=== PATIENT | male | born 1955 | race Caucasian/White ===

== ENCOUNTER 2018-10-14 14:59 | Emergency (ER) | payer OTHER ==
[2018-10-14 15:17] VITALS: BP 116/87
[2018-10-14] MEDS ORDERED: HYDROmorphone 1 MG/ML Syringe IVPUSH ONE ×2 (17:11→18:12)
[2018-10-14] MEDS ORDERED: Sodium Chloride 0.9% 10 ML Syringe FLUSH PRN (17:11)
--- NOTE | 2018-10-14 18:54 | EDM.PDOC ---
ED HPI GENERAL MEDICAL PROBLEM - General Chief Complaint: Back Pain or Injury Stated Complaint: HIP AND BACK PAIN Time Seen by Provider: 10/14/18 16:53 Source of Information: Reports: Patient History Limitations: Reports: No Limitations - History of Present Illness INITIAL COMMENTS - FREE TEXT/NARRATIVE: 63-year-old male presents for evaluation and treatment of back pain and hip pain. Patient reports he's had low back pain for several years, over the last few weeks it has become increasingly painful. States he is barely able to walk due to the pain. He is reporting pain primarily in the lumbar spine with radiation to the left hip. He denies any urinary incontinence or stool incontinence. He has cramps in the right leg. Patient also reports he's been falling recently. He fell several weeks ago he's been experiencing some right-sided rib pain since a fall 3 weeks ago. He also states that he fell about 10 days ago. No head trauma with these falls. Patient has a history of diabetes and COPD. He has chronic right leg numbness and tingling from his diabetes. Patient's primary care provider is Dr. Castillo. Patient is currently on oxycodone for pain. He states they took one of these just prior to arrival in ER. He is also tried muscle relaxers in the past but is not finding relief with these. Pat is currently seeing Dr. Maxwell for lung cancer. He is not currently on any chemotherapy or radiation now. Had chemotherapy and radiation about a year and a half ago. States it has been quite sometime since she's had a PET scan. Currently receiving immunotherapy. 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 Lower Back Pain Score (Numeric/FACES): 8 - Related Data Allergies Allergy/AdvReac Type Severity Reaction Status Date / Time No Known Allergies Allergy Verified 10/14/18 15:13 Home Meds: Home Meds Apixaban [Eliquis] 5 mg PO BID 04/08/18 [History] Aspirin 81 g PO DAILY 04/08/18 [History] Budesonide [Pulmicort] 1 dose INH BID 04/08/18 [History] Digoxin [Digox] 125 mcg PO DAILY 04/08/18 [History] Insulin Aspart [NovoLOG] 1 dose INJECT ASDIRECTED 04/08/18 [History] Insulin Degludec/Liraglutide [Xultophy 100 Unit-3.6MG/ml Pen] 18 units INJECT DAILY 04/08/18 [History] Insulin Needle 1 dose INJECT ASDIRECTED 04/08/18 [History] Ipratropium [Atrovent] 1 dose INH Q8HR 04/08/18 [History] Lancets 1 dose INJECT ASDIRECTED 04/08/18 [History] Levalbuterol HCl 45 mcg INH ASDIRECTED 04/08/18 [History] Metoprolol Tartrate 50 mg PO BID 04/08/18 [History] Nitroglycerin [Nitrostat] 0.4 mg SL ASDIRECTED PRN 04/08/18 [History] Potassium Chloride 20 meq PO BID 04/08/18 [History] Sertraline [Zoloft] 50 mg PO DAILY 04/08/18 [History] atorvaSTATin [Lipitor] 40 mg PO BEDTIME 04/08/18 [History] prednisoLONE [Millipred] 10 mg PO ASDIRECTED 04/08/18 [History] Insulin Degludec [Tresiba] 18 units SQ DAILY 09/20/18 [History] LORazepam 1 tab PO BID PRN 09/20/18 [History] Magnesium Oxide 1 tab PO DAILY 09/20/18 [History] Sofosbuvir/Velpatasvir [Epclusa 400 mg-100 mg Tablet] 1 tab PO DAILY 09/20/18 [ History] Pantoprazole Sodium [Protonix] 40 mg PO DAILY 10 Days #10 tablet. 09/22/18 [Rx ] dexAMETHasone [Dexamethasone] 4 mg PO QID 10 Days #40 tablet 09/22/18 [Rx] HYDROmorphone [Dilaudid] 2 mg PO Q4H PRN #20 tab 10/14/18 [Rx] Past Medical History HEENT History: Reports: Impaired Vision Other HEENT History: reading glasses Cardiovascular History: Reports: CAD, High Cholesterol, Hypertension Respiratory History: Reports: COPD, Other (See Below) Other Respiratory History: lung cancer with radiation and chemo Gastrointestinal History: Reports: None Genitourinary History: Reports: None Musculoskeletal History: Reports: None Neurological History: Reports: None Psychiatric History: Reports: Anxiety Endocrine/Metabolic History: Reports: Diabetes, Type II Hematologic History: Reports: None Immunologic History: Reports: None Oncologic (Cancer) History: Reports: Lung, Other (See Below) Other Oncologic History: l side lung cancer, "non-small cell" per pt, Dr Fan is oncologist Dermatologic History: Reports: None - Infectious Disease History Infectious Disease History: Reports: Chicken Pox, Hepatitis C - Past Surgical History Cardiovascular Surgical History: Reports: Coronary Artery Stent Respiratory Surgical History: Reports: Other (See Below) GI Surgical History: Reports: Cholecystectomy Social & Family History - Family History Family Medical History: Noncontributory - Tobacco Use Smoking Status *Q: Former Smoker Used Tobacco, but Quit: Yes Month/Year Tobacco Last Used: 2017 - Caffeine Use Caffeine Use: Reports: Coffee, Soda, Tea - Recreational Drug Use Recreational Drug Use: No - Living Situation & Occupation Living situation: Reports: Occupation: Disabled ED ROS GENERAL - Review of Systems Review Of Systems: See Below Cardiovascular: Reports: Chest Pain (reports pain to the right anterior lateral lower ribs) GI/Abdominal: Denies: Stool Incontinence : Denies: Incontinence Musculoskeletal: Reports: Back Pain. Denies: Leg Pain Neurological: Denies: Numbness, Tingling ED EXAM,LOWER BACK PAIN/INJURY - Physical Exam Exam: See Below Exam Limited By: No Limitations General Appearance: Alert, WD/WN, No Apparent Distress Respiratory/Chest: No Respiratory Distress, Lungs Clear, Normal Breath Sounds Cardiovascular: Normal Peripheral Pulses, Regular Rate, Rhythm, No Murmur Back Exam: Normal Inspection, Paraspinal Tenderness (lumbar spine ). No: CVA Tenderness (L), CVA Tenderness (R), Vertebral Tenderness Extremities: Normal Inspection, Normal Range of Motion, Normal Capillary Refill Neurological: Alert, Normal Mood/Affect, Normal Dorsiflexion, Normal Plantar Flexion Psychiatric: Normal Affect, Normal Mood Skin Exam: Warm, Dry, Normal Color Course - Vital Signs Last Recorded V/S: Last Vital Signs Temp 97.9 F 10/14/18 15:17 Pulse 82 10/14/18 15:17 Resp 16 10/14/18 15:17 BP 116/87 10/14/18 15:17 Pulse Ox 93 L 10/14/18 15:17 - Orders/Labs/Meds Meds: Medications Discontinued Medications Generic Name Dose Route Start Last Admin Trade Name Freq PRN Reason Stop Dose Admin Hydromorphone HCl 1 mg 10/14/18 17:11 10/14/18 17:30 Dilaudid IVPUSH 10/14/18 17:12 1 mg ONETIME ONE Administration Hydromorphone HCl 1 mg 10/14/18 18:12 10/14/18 18:27 Dilaudid IVPUSH 10/14/18 18:13 1 mg ONETIME ONE Administration Hydromorphone HCl 0.5 mg 10/14/18 20:03 10/14/18 20:08 Dilaudid IVPUSH 10/14/18 20:04 0.5 mg ONETIME ONE Administration Sodium Chloride 10 ml 10/14/18 17:11 10/14/18 17:30 Saline Flush FLUSH 10 ml ASDIRECTED PRN Administration Keep Vein Open - Radiology Interpretation Free Text/Narrative:: CT of the pelvis impression per vrad: no acute findings. CT of the lumbar spine impression per vard: age-indeterminate endplate herniation L4 vertebral body. Age- indeterminante 1 cm avulsion fragment posisbly off of osteophyte, inferior endplate L3. 3.8 cm infrarenal abdominal aortic aneurysm - Re-Assessments/Exams Free Text/Narrative Re-Assessment/Exam: 10/14/18 20:09 After several doses of medications we have gotten his pain under control. CT of the pelvis and lumbar spine obtained to rule out metastasis and Compression fractures. Reviewed these results with the patient. I'll put him on some oral tabs of Dilaudid as he is on oxycodone and this is not controlling his pain. I will have him follow-up with his primary care provider. Discharge instructions as documented. 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 Do not drive or operate machinery within 10 hours of taking narcotic pain medication. Take the oral Dilaudid 2mg PO every 4-6 hours as needed for pain. Do not take the oxycodone you have at home with this. Dilaudid is habit forming, take as few of these as needed to control your pain. Do not drive or operate machinery within 10 hours of taking Dilaudid Continue on your muscle relaxer as prescribed. Follow-up with your primary care provider this week for further management of your pain. Recommend using ice or heat for additional pain relief. Please return to the ER for symptoms change or worsen.
[2018-10-14] MEDS ORDERED: HYDROmorphone 0.5 MG/0.5 ML Syringe IVPUSH ONE (20:03)
--- NOTE | 2018-10-15 09:32 | CT ---
CT lumbar spine Technique: Multiple axial sections were obtained from the top of T12 inferiorly through the sacrum. Reconstructed coronal and sagittal images were reviewed. Comparison: No prior lumbar spine imaging is available. Osteopenia is seen. Distal aorta shows mild aneurysmal dilatation with AP dimension of 3.5 cm. T11-T12: Posterior disc space narrowing is seen. Posterior disc is preserved. Slight endplate concavity is noted at T12 with no definite acute fracture lines. No central canal stenosis or neural foraminal stenosis is seen. T12-L1: Mild anterior wedging of T12 is seen. Endplate concavity is noted inferiorly within T12. No discrete acute fracture line is seen. Degenerative change is noted at the rib articulation and within both apophyseal joints. No central canal stenosis is seen. Neural foramina are patent. L1-L2: Mild anterior wedging of L1 is seen. No acute fracture line is definitely appreciated. Posterior disc maintains a concave margin. No central canal stenosis is seen. Neural foramina are patent. Mild degenerative apophyseal change is seen. L2-L3: Slight circumferential disc bulge is seen. Posterior disc maintains a planar margin. No central canal stenosis is seen. Mild degenerative apophyseal change is noted. Nerve roots appear to exit without definite compromise. No discrete fracture is appreciated. L3-L4: Vacuum disc phenomena is seen. Endplate concavities noted of L3. Small amount of air is seen within the anterior and inferior endplate of L3 and some of this compression deformity may be acute. Circumferential disc bulge is seen. No central canal stenosis is noted. Disc bulge causes bilateral neural foraminal stenosis which is worse on the left side. Mild degenerative apophyseal change is seen. L4-L5: Endplate concavities are noted of L4. Equivocal fracture line is noted within the mid body of L4 and some of this compression deformity is likely acute. Mild circumferential disc bulge is seen. Mild degenerative apophyseal change is noted. No central canal stenosis is seen. Neural foramina are patent where the nerve roots exit. L5-S1: Posterior disc is preserved. No central canal stenosis or neural foraminal stenosis is seen. Degenerative apophyseal change is seen. No fracture is appreciated. Impression: 1. Compression deformities of L3 and L4 with findings suggesting some of the compression deformities to be acute. MRI would confirm bone marrow edema (indicating fairly acute age) if clinically needed. 2. Degenerative change as noted above with other compression deformities believed to be old. Diagnostic code #3 I agree with preliminary report from [facility], finalized on 10/14/18, 8:27 PM Central Time
--- NOTE | 2018-10-15 09:32 | CT ---
CT pelvis Technique: Multiple axial sections through the pelvis were obtained. Comparison: No previous bony pelvis exam. Compression deformities are seen within the spine which were discussed on CT spine study. Joint space narrowing is noted within both hips. Sacroiliac joints show mild degenerative sclerosis. Bony structures are otherwise osteopenic. No fracture or other abnormality is appreciated. Impression: 1. Osteopenia and degenerative change. 2. Compression deformities are partially seen which were described on CT lumbar spine study. 3. Nothing acute is appreciated. Diagnostic code #2 I agree with preliminary report from [facility], finalized on 10/14/18, 8:30 PM Central Time
--- NOTE | 2018-10-15 09:35 | CR ---
Chest and ribs: Frontal view of the chest was obtained as well as oblique views of both ribs. Comparison: Prior chest x-ray of 02/17/18. Parenchymal density is noted within the left mid and lower lung presumably chronic. Pleural thickening is also noted within the left base presumably chronic. No definite acute-appearing parenchymal changes seen. Incidental azygos lobe is noted. Left-sided infusion port is seen. Degenerative spurring and scoliosis is noted within the spine. No discrete fracture or other rib abnormality is appreciated. Impression: 1. Increased density within the left chest as well as adjacent pleural thickening most likely residual from previously treated lung carcinoma. 2. Nothing acute is definitely appreciated. Nondisplaced rib fracture could be missed. Diagnostic code #3
== END 2018-10-14 20:38 | disposition home or self-care (01) ==
LOC: JD.ED 14:59
DX: M54.5 Low back pain (principal); E78.00 Pure hypercholesterolemia, unspecified; I10 Essential (primary) hypertension; I25.10 Atherosclerotic heart disease of native coronary artery without angina pectoris; J44.9 Chronic obstructive pulmonary disease, unspecified; F41.9 Anxiety disorder, unspecified; E11.9 Type 2 diabetes mellitus without complications; Z87.891 Personal history of nicotine dependence; Z79.899 Other long term (current) drug therapy; Z79.82 Long term (current) use of aspirin; Z79.01 Long term (current) use of anticoagulants; Z79.4 Long term (current) use of insulin
CPT/HCPCS: 71111; 72131; 72192; 96374; 96376; 99284; J1170

== ENCOUNTER 2018-11-06 11:45 | Inpatient (IN) | payer OTHER ==
[2018-11-06] MEDS ORDERED: Albuterol/Ipratropium 3.0-0.5 MG/3 ML Neb Soln ONE (11:59)
[2018-11-06] MEDS ORDERED: Albuterol/Ipratropium 3.0-0.5 MG/3 ML Neb Soln NEB ONE (11:59)
[2018-11-06] MEDS ORDERED: Dexamethasone 4 MG/ML SDV IVPUSH ONE (12:15)
[2018-11-06] MEDS ORDERED: Iopamidol 755 Mg/ML 100 ML Bottle IVPUSH ONE (12:26)
[2018-11-06] MEDS ORDERED: Sodium Chloride 0.9% 10 ML Syringe FLUSH ONE (12:26)
--- NOTE | 2018-11-06 12:26 | EDM.PDOC ---
ED HPI GENERAL MEDICAL PROBLEM - General Chief Complaint: Respiratory Problem Stated Complaint: [facility] Time Seen by Provider: 11/06/18 11:56 Source of Information: Reports: Patient, EMS, RN Notes Reviewed - History of Present Illness INITIAL COMMENTS - FREE TEXT/NARRATIVE: 63-year-old gentleman has been brought here by EMS for severe shortness of breath, hypoxia. He does have history of lung cancer diagnosed about a year ago. Reported to of had radiation therapy last summer and early fall and also did have chemotherapy somewhere in that time period. According to his brother he now is getting periodic "infusion therapy which I believe is some type of immunotherapy. He does use oxygen at home. He is chronically short of breath but this morning became much more severely short of breath than typical. When EMS arrived at his home for his complaint of shortness of breath, difficulty breathing and severe back discomfort they state he was "mottled from the waist down, severely short of breath with O2 sats at around 82% with his oxygen concentrator cranked all the way up and also using the supplemental oxygen take with mask. They did try to give an albuterol neb. and also got him started on some BiPAP en route to the ED. They state his sats di come up to around 90 and "he is doing much better from their arrival at the resident's home [place] time ago". Looking at his med list he has been on [facility] in the past apparently for chronic atrial fibrillation but his brother states that was stopped sometime ago due to morning to start a new medication for what sounds like chronic hepatitis C. 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 He is on daily dexamethasone. His brother does not believe he took that or most of his other normal meds this morning. According to his brother he has had occasional rectal cough of some yellow crud but has not been coughing excessively. No known fever at home. Middle Back Pain Score (Numeric/FACES): 8 - Related Data Allergies Allergy/AdvReac Type Severity Reaction Status Date / Time No Known Allergies Allergy Verified 11/06/18 11:56 Home Meds: Home Meds Aspirin 81 g PO DAILY 04/08/18 [History] Budesonide [Pulmicort] 1 dose INH BID 04/08/18 [History] Digoxin [Digox] 125 mcg PO DAILY 04/08/18 [History] Insulin Aspart [NovoLOG] 1 dose INJECT ASDIRECTED 04/08/18 [History] Ipratropium [Atrovent] 1 dose INH Q8HR 04/08/18 [History] Metoprolol Tartrate 50 mg PO BID 04/08/18 [History] Sertraline [Zoloft] 50 mg PO DAILY 04/08/18 [History] Insulin Degludec [Tresiba] 23 units SQ DAILY 09/20/18 [History] LORazepam 1 tab PO BID PRN 09/20/18 [History] Magnesium Oxide 1 tab PO DAILY 09/20/18 [History] Sofosbuvir/Velpatasvir [Epclusa 400 mg-100 mg Tablet] 1 tab PO DAILY 09/20/18 [ History] Pantoprazole Sodium [Protonix] 40 mg PO DAILY 10 Days #10 tablet. 09/22/18 [Rx ] Acetaminophen 650 mg PO Q4H PRN 11/06/18 [History] Albuterol/Ipratropium [DuoNeb 3.0-0.5 MG/3 ML] 3 ml NEB QID 11/06/18 [History] Digoxin [Digox] 250 mcg PO MOFR 11/06/18 [History] dexAMETHasone [Dexamethasone] 4 mg PO BID 11/06/18 [History] oxyCODONE ER [OxyCONTIN] 10 mg PO Q4H PRN 11/06/18 [History] traZODone HCl [Trazodone HCl] 100 mg PO BEDTIME 11/06/18 [History] Past Medical History HEENT History: Reports: Impaired Vision Other HEENT History: reading glasses Cardiovascular History: Reports: CAD, High Cholesterol, Hypertension Respiratory History: Reports: COPD, Other (See Below) Other Respiratory History: lung cancer with radiation and chemo Gastrointestinal History: Reports: None Genitourinary History: Reports: None Musculoskeletal History: Reports: None Neurological History: Reports: None Psychiatric History: Reports: Anxiety Endocrine/Metabolic History: Reports: Diabetes, Type II Hematologic History: Reports: None Immunologic History: Reports: None Oncologic (Cancer) History: Reports: Lung, Other (See Below) Other Oncologic History: l side lung cancer, "non-small cell" per pt, Dr Fan is oncologist Dermatologic History: Reports: None - Infectious Disease History Infectious Disease History: Reports: Chicken Pox, Hepatitis C - Past Surgical History Cardiovascular Surgical History: Reports: Coronary Artery Stent Respiratory Surgical History: Reports: Other (See Below) GI Surgical History: Reports: Cholecystectomy Social & Family History - Family History Family Medical History: Noncontributory - Caffeine Use Caffeine Use: Reports: Coffee, Soda, Tea - Living Situation & Occupation Living situation: Reports: Occupation: Disabled ED ROS GENERAL - Review of Systems Review Of Systems: Unable To Obtain (Patient on BiPAP on arrival to ED, short of breath, as in questions but very difficult to understand. The history I am obtaining is and was from EMS and his brother.) Respiratory: Reports: Shortness of Breath GI/Abdominal: Denies: Abdominal Pain, Vomiting Skin: Reports: Other (Severe duskiness and mottling of lower body) ED EXAM, GENERAL - Physical Exam Exam: See Below General Appearance: Anxious, Moderate Distress Eye Exam: Bilateral Eye: PERRL Throat/Mouth: Other (Wearing CPAP mask on arrival to ED, not able to examine) Head: No: Facial Swelling Neck: Supple, Other ([place] JVD) Respiratory/Chest: Respiratory Distress (Moderate). No: Rales, Rhonchi, Wheezing Cardiovascular: Tachycardia GI/Abdominal: Soft, Non-Tender Back Exam: No: CVA Tenderness (L), CVA Tenderness (R) Extremities: Mottled (Very mild mottling of lower extremities on arrival to ED) . No: Leg Pain, Increased Warmth Neurological: No Motor/Sensory Deficits, Other (Patient is awake, he does verbalize when asked questions but very difficult to understand with his somewhat labored breathing and wearing the BiPAP mask) Skin Exam: Warm, Dry (On arrival to ED) EKG INTERPRETATION EKG Date: 11/06/18 Rhythm: A-Fib P-Wave: Absent QRS: Other (Q waves in inferior leads) ST-T: Depressed (V2V6) Course - Vital Signs Last Recorded V/S: Last Vital Signs Temp 97.2 F 11/06/18 11:53 Pulse 126 H 11/06/18 11:53 Resp 27 H 11/06/18 11:53 BP 122/83 11/06/18 11:53 Pulse Ox 92 L 11/06/18 12:06 - Orders/Labs/Meds Orders: Active Orders 24 hr Category Date Time Status BIPAP Adult [RT BiPAP/CPAP] [RC] ASDIRECTED Care 11/06/18 12:07 Active EKG 12 Lead [EKG Documentation Completion] [RC] STAT Care 11/06/18 11:59 Active Oxygen Therapy [RC] ASDIRECTED Care 11/06/18 11:57 Active POC Glucose [Blood Glucose Check, Bedside] [RC] ONETIME Care 11/06/18 12:09 Active RT Aerosol Therapy [RC] ASDIRECTED Care 11/06/18 12:00 Active CULTURE BLOOD [] Stat Lab 11/06/18 12:13 Received Sodium Chloride 0.9% [Normal Saline] 1,000 ml Med 11/06/18 15:00 Active IV ASDIRECTED Sodium Chloride 0.9% [Normal Saline] 100 ml Med 11/06/18 12:30 Active IV ASDIRECTED Medication Orders Sodium Chloride (Normal Saline) 100 mls @ 60 mls/hr IV ASDIRECTED SANNA Last Admin: 11/06/18 12:42 Dose: 60 mls/hr Sodium Chloride (Normal Saline) 1,000 mls @ 125 mls/hr IV ASDIRECTED SANNA Last Admin: 11/06/18 14:58 Dose: 125 mls/hr Labs: Laboratory Tests 11/06/18 11/06/18 11/06/18 Range/Units 11:50 11:50 11:50 WBC 9.37 H (4.23-9.07) K/mm3 RBC 5.33 (4.63-6.08) M/mm3 Hgb 14.6 D (13.7-17.5) gm/L Hct 44.1 (40.1-51.0) % MCV 82.7 D (79.0-92.2) fl MCH 27.4 (25.7-32.2) pg MCHC 33.1 (32.2-35.5) g/dl RDW Std Deviation 49.9 H (35.1-43.9) fL Plt Count 201 D (163-337) K/mm3 MPV 8.8 L (9.4-12.3) fl Neut % (Auto) 71.7 H (34.0-67.9) % Lymph % (Auto) 16.9 L (21.8-53.1) % Schley % (Auto) 3.2 L (5.3-12.2) % Eos % (Auto) 0.1 L (0.8-7.0) Baso % (Auto) 0.2 (0.1-1.2) % Neut # (Auto) 6.72 H (1.78-5.38) K/mm3 Lymph # (Auto) 1.58 (1.32-3.57) K/mm3 Schley # (Auto) 0.30 (0.30-0.82) K/mm3 Eos # (Auto) 0.01 L (0.04-0.54) K/mm3 Baso # (Auto) 0.02 (0.01-0.08) K/mm3 Manual Slide Review Abnormal smear D-Dimer, Quantitative 3.86 H (0.19-0.50) mg/L Puncture Site ABG pH (7.35-7.45) ABG pCO2 (35.0-45.0) mmHg ABG pO2 (80.0-100.0) mmHg ABG HCO3 (22.0-26.0) meq/L ABG O2 Saturation (96.0-97.0) % ABG Base Excess (-2-2.0) Zachary Test A-a Gradient mmHg O2 Delivery Device FiO2 (21.00-100.00) % Sodium 136 (136-145) mEq/L Potassium 4.6 (3.5-5.1) mEq/L Chloride 94 L (98-107) mEq/L Carbon Dioxide 30 (21-32) mEq/L Anion Gap 16.6 H (5-15) BUN 25 H (7-18) mg/dL Creatinine 1.3 (0.7-1.3) mg/dL Est Cr Clr Drug Dosing TNP Estimated GFR (MDRD) 56 (>60) mL/min BUN/Creatinine Ratio 19.2 H (14-18) Glucose 223 H (80-115) mg/dL Lactic Acid (0.4-2.0) mmol/L Calcium 9.1 (8.5-10.1) mg/dL Magnesium (1.8-2.4) mg/dl Total Bilirubin 0.6 (0.2-1.0) mg/dL AST 19 (15-37) U/L ALT 34 (16-63) U/L Alkaline Phosphatase 117 H (46-116) U/L Troponin I < 0.017 (0.00-0.056) ng/mL C-Reactive Protein 7.8 H* (<1.0) mg/dL Total Protein 7.0 (6.4-8.2) g/dl Albumin 2.4 L (3.4-5.0) g/dl Globulin 4.6 gm/dL Albumin/Globulin Ratio 0.5 L (1-2) Digoxin (0.9-2.0) ng/mL 11/06/18 11/06/18 11/06/18 Range/Units 11:50 11:50 12:13 WBC (4.23-9.07) K/mm3 RBC (4.63-6.08) M/mm3 Hgb (13.7-17.5) gm/L Hct (40.1-51.0) % MCV (79.0-92.2) fl MCH (25.7-32.2) pg MCHC (32.2-35.5) g/dl RDW Std Deviation (35.1-43.9) fL Plt Count (163-337) K/mm3 MPV (9.4-12.3) fl Neut % (Auto) (34.0-67.9) % Lymph % (Auto) (21.8-53.1) % Schley % (Auto) (5.3-12.2) % Eos % (Auto) (0.8-7.0) Baso % (Auto) (0.1-1.2) % Neut # (Auto) (1.78-5.38) K/mm3 Lymph # (Auto) (1.32-3.57) K/mm3 Schley # (Auto) (0.30-0.82) K/mm3 Eos # (Auto) (0.04-0.54) K/mm3 Baso # (Auto) (0.01-0.08) K/mm3 Manual Slide Review D-Dimer, Quantitative (0.19-0.50) mg/L Puncture Site ABG pH (7.35-7.45) ABG pCO2 (35.0-45.0) mmHg ABG pO2 (80.0-100.0) mmHg ABG HCO3 (22.0-26.0) meq/L ABG O2 Saturation (96.0-97.0) % ABG Base Excess (-2-2.0) Zachary Test A-a Gradient mmHg O2 Delivery Device FiO2 (21.00-100.00) % Sodium (136-145) mEq/L Potassium (3.5-5.1) mEq/L Chloride (98-107) mEq/L Carbon Dioxide (21-32) mEq/L Anion Gap (5-15) BUN (7-18) mg/dL Creatinine (0.7-1.3) mg/dL Est Cr Clr Drug Dosing Estimated GFR (MDRD) (>60) mL/min BUN/Creatinine Ratio (14-18) Glucose (80-115) mg/dL Lactic Acid 3.6 H (0.4-2.0) mmol/L Calcium (8.5-10.1) mg/dL Magnesium 1.6 L (1.8-2.4) mg/dl Total Bilirubin (0.2-1.0) mg/dL AST (15-37) U/L ALT (16-63) U/L Alkaline Phosphatase (46-116) U/L Troponin I (0.00-0.056) ng/mL C-Reactive Protein (<1.0) mg/dL Total Protein (6.4-8.2) g/dl Albumin (3.4-5.0) g/dl Globulin gm/dL Albumin/Globulin Ratio (1-2) Digoxin 0.9 (0.9-2.0) ng/mL 11/06/18 11/06/18 Range/Units 12:21 15:04 WBC (4.23-9.07) K/mm3 RBC (4.63-6.08) M/mm3 Hgb (13.7-17.5) gm/L Hct (40.1-51.0) % MCV (79.0-92.2) fl MCH (25.7-32.2) pg MCHC (32.2-35.5) g/dl RDW Std Deviation (35.1-43.9) fL Plt Count (163-337) K/mm3 MPV (9.4-12.3) fl Neut % (Auto) (34.0-67.9) % Lymph % (Auto) (21.8-53.1) % Schley % (Auto) (5.3-12.2) % Eos % (Auto) (0.8-7.0) Baso % (Auto) (0.1-1.2) % Neut # (Auto) (1.78-5.38) K/mm3 Lymph # (Auto) (1.32-3.57) K/mm3 Schley # (Auto) (0.30-0.82) K/mm3 Eos # (Auto) (0.04-0.54) K/mm3 Baso # (Auto) (0.01-0.08) K/mm3 Manual Slide Review D-Dimer, Quantitative (0.19-0.50) mg/L Puncture Site Lt radial Lt radial ABG pH 7.50 H 7.48 H (7.35-7.45) ABG pCO2 36.9 39.2 (35.0-45.0) mmHg ABG pO2 70.0 L 157.0 H* (80.0-100.0) mmHg ABG HCO3 28.2 H 28.6 H (22.0-26.0) meq/L ABG O2 Saturation 94.2 L 97.8 H (96.0-97.0) % ABG Base Excess 5.2 H 5.1 H (-2-2.0) Zachary Test Positive A-a Gradient 332 242 mmHg O2 Delivery Device Bipap12/6 Bipap 12/6 FiO2 70.00 70.00 (21.00-100.00) % Sodium (136-145) mEq/L Potassium (3.5-5.1) mEq/L Chloride (98-107) mEq/L Carbon Dioxide (21-32) mEq/L Anion Gap (5-15) BUN (7-18) mg/dL Creatinine (0.7-1.3) mg/dL Est Cr Clr Drug Dosing Estimated GFR (MDRD) (>60) mL/min BUN/Creatinine Ratio (14-18) Glucose (80-115) mg/dL Lactic Acid (0.4-2.0) mmol/L Calcium (8.5-10.1) mg/dL Magnesium (1.8-2.4) mg/dl Total Bilirubin (0.2-1.0) mg/dL AST (15-37) U/L ALT (16-63) U/L Alkaline Phosphatase (46-116) U/L Troponin I (0.00-0.056) ng/mL C-Reactive Protein (<1.0) mg/dL Total Protein (6.4-8.2) g/dl Albumin (3.4-5.0) g/dl Globulin gm/dL Albumin/Globulin Ratio (1-2) Digoxin (0.9-2.0) ng/mL Meds: Medications Generic Name Dose Route Start Last Admin Trade Name Rufina PRN Reason Stop Dose Admin Sodium Chloride 100 mls @ 60 mls/hr 11/06/18 12:30 11/06/18 12:42 Normal Saline IV 60 mls/hr ASDIRECTED SANNA Administration Sodium Chloride 1,000 mls @ 125 mls/hr 11/06/18 15:00 11/06/18 14:58 Normal Saline IV 125 mls/hr ASDIRECTED SANNA Administration Discontinued Medications Generic Name Dose Route Start Last Admin Trade Name Rufina PRN Reason Stop Dose Admin Albuterol/Ipratropium 3 ml 11/06/18 11:59 11/06/18 12:05 Duoneb 3.0-0.5 Mg/3 Ml NEB 11/06/18 12:00 3 ml ONETIME ONE Administration Albuterol/Ipratropium Confirm 11/06/18 11:59 11/06/18 12:05 Duoneb 3.0-0.5 Mg/3 Ml Administered 11/06/18 12:00 Not Given Dose 3 ml .ROUTE .STK-MED ONE Dexamethasone 4 mg 11/06/18 12:15 11/06/18 12:19 Dexamethasone IVPUSH 11/06/18 12:16 4 mg ONETIME ONE Administration Hydromorphone HCl 0.5 mg 11/06/18 15:34 Dilaudid IVPUSH 11/06/18 15:35 ONETIME ONE Sodium Chloride 500 mls @ 999 mls/hr 11/06/18 13:22 11/06/18 13:29 Normal Saline IV 11/06/18 13:52 999 mls/hr .BOLUS ONE Administration Ceftriaxone Sodium 2 gm/ 100 mls @ 200 mls/hr 11/06/18 14:19 11/06/18 14:25 Sodium Chloride IV 11/06/18 14:48 200 mls/hr NOW STA Administration Iopamidol 100 ml 11/06/18 12:26 11/06/18 12:41 Isovue-370 (76%) IVPUSH 11/06/18 12:27 100 ml ONETIME ONE Administration Sodium Chloride 10 ml 11/06/18 12:26 11/06/18 12:41 Saline Flush FLUSH 11/06/18 12:27 10 ml ONETIME ONE Administration - Re-Assessments/Exams Free Text/Narrative Re-Assessment/Exam: 11/06/18 1 12:40. On arrival to ED he was very to Make only hypoxic with sats running about 88-90% on CPAP started by EMS in route to ED. Heart rate was in the 120s. He was noted to be afebrile. We did switch him over to BiPAP at a setting of 12/6. Gave him a dual neb through the tubing. Give dexamethasone 4 mg IV. Weighted about 10 minutes and then did check ABGs. 11/06/18 13:00. ABGs show a PO2 of 70, pH 7.5 CO2 36.9 at an FiO2 of 70%, white blood count came back at 9370, hemoglobin 14.6 BUN 25 creatinine 1.3C reactive protein 7.8. D-dimer came back at 3.86. CT pulmonary angiogram has been ordered. He has starting to show improvement with O2 sats now up into the 98-100 % range. He does come down to 110. 11/06/18 14:25. Have talked to Dr Fan, his oncologist. He states that what looks like new onset pneumonia should be able to be safely treated here. I have talked to Dr Tucker, our Hospitalist, he wants to have us recheck a blood gas now that it has been a couple of hrs, if improved as expected than he will be admitted here. 11/06/18 15:30. ABG's markedly improved, Dr Mathew does accept patient for admission. Departure - Departure Time of Disposition: 14:20 Disposition: Admitted As Inpatient 67 Condition: Serious Clinical Impression: Hypoxia, Atrial fibrillation with RVR Pneumonia Qualifiers: Pneumonia type: due to unspecified organism Laterality: left Lung location: lower lobe of lung Qualified Code(s): J18.1 - Lobar pneumonia, unspecified organism - Discharge Information Referrals: Denny Castillo MD [Primary Care Provider] - Forms: ED Department Discharge ED Communication - Discussed Case With (1) Discussed Case With (1): Admitting Provider (Dr Tucker, decision to admit at about 15:20.) - My Orders Last 24 Hours: My Active Orders 11/06/18 11:57 Oxygen Therapy [RC] ASDIRECTED 11/06/18 11:59 EKG 12 Lead [EKG Documentation Completion] [RC] STAT 11/06/18 12:00 RT Aerosol Therapy [RC] ASDIRECTED 11/06/18 12:07 BIPAP Adult [RT BiPAP/CPAP] [RC] ASDIRECTED 11/06/18 12:09 POC Glucose [Blood Glucose Check, Bedside] [RC] ONETIME 11/06/18 12:13 CULTURE BLOOD [BC] Stat 11/06/18 12:30 Sodium Chloride 0.9% [Normal Saline] 100 ml IV ASDIRECTED 11/06/18 15:00 Sodium Chloride 0.9% [Normal Saline] 1,000 ml IV ASDIRECTED - Assessment/Plan Last 24 Hours: My Active Orders 11/06/18 11:57 Oxygen Therapy [RC] ASDIRECTED 11/06/18 11:59 EKG 12 Lead [EKG Documentation Completion] [RC] STAT 11/06/18 12:00 RT Aerosol Therapy [RC] ASDIRECTED 11/06/18 12:07 BIPAP Adult [RT BiPAP/CPAP] [RC] ASDIRECTED 11/06/18 12:09 POC Glucose [Blood Glucose Check, Bedside] [RC] ONETIME 11/06/18 12:13 CULTURE BLOOD [BC] Stat 11/06/18 12:30 Sodium Chloride 0.9% [Normal Saline] 100 ml IV ASDIRECTED 11/06/18 15:00 Sodium Chloride 0.9% [Normal Saline] 1,000 ml IV ASDIRECTED
[2018-11-06] MEDS ORDERED: Sodium Chloride 0.9% 100 ML IV SCH (12:30)
[2018-11-06] MEDS ORDERED: Sodium Chloride 0.9% 500 ML IV ONE (13:22)
--- NOTE | 2018-11-06 13:50 | CT ---
CT chest Technique: Multiple axial sections through the chest were obtained. Intravenous contrast was utilized. Study has been performed as a pulmonary angiogram protocol. Comparison: Chest x-ray performed earlier on the same day (11:10 AM) and chest x -ray 10/14/18. Findings: Pulmonary arteries are well-opacified. No filling defects are seen to indicate pulmonary embolism. Parenchymal density is seen within the periphery of the right upper lung and right lower lung which is an interval change from older chest x-ray. Air- filled cavity containing fluid is seen within the posterior left lung base which measures about 9.2 cm. Slight interstitial change is noted within the left base. Atherosclerotic change is seen within the thoracic aorta without aneurysm. Small mediastinal lymph nodes are seen believed to be within normal limits. Left subclavian line is seen. Degenerative change is scattered within the spine with mild scoliosis. No acute osseous abnormality is seen. Coronary artery calcification is present. Incidental azygos lobe is present. Impression: 1. No findings of pulmonary embolism. 2. Parenchymal density within the periphery of the right upper and right lower lung as an interval change from previous chest x-ray of 10/14/18. Findings could represent lymphangitic metastatic disease as well as pneumonia. 3. Fluid-filled and air-filled cavity within the posterior left lung base with measurements as noted above. Fluid may relate to necrotic tumor if patient has no chronic symptoms of lung abscess. 4. Slight parenchymal density within the left lung most likely due to scarring from prior lung cancer treatment. MTDD
--- NOTE | 2018-11-06 13:51 | CR ---
Pelvis: AP view of the pelvis was obtained. Joint spaces within both hips are maintained. Sacroiliac joints are unremarkable. Several cysts are noted within the superior left acetabulum most likely degenerative in etiology. No discrete fracture or other abnormality is seen. Impression: 1. Probable degenerative change within the left hip as noted above. 2. Nothing acute is appreciated on AP pelvis study. Diagnostic code #2 MTDD
--- NOTE | 2018-11-06 14:05 | CR ---
Chest: Portable view of the chest was obtained. Comparison: Prior chest x-ray of 10/14/18. Parenchymal density is noted within the right lung base. This is an interval change from previous exam. Parenchymal density within the left mid to lower lung which appears to be similar to previous exam. Heart size is normal. Upper mediastinum is normal. Left-sided infusion port is seen. Bony structures are grossly intact. Impression: 1. Increased density within the right lung base most likely representing pneumonia. 2. Density within the left base which appears to be fairly stable from previous exam. Diagnostic code #3 MTDD
[2018-11-06] MEDS ORDERED: cefTRIAXone 2 GM Vial IV ONE (14:16)
[2018-11-06] MEDS ORDERED: cefTRIAXone 2 GM in Sodium Chloride 0.9% 100 ML IV STA (14:19)
[2018-11-06] MEDS: Sodium Chloride 0.9% 1,000 ML IV SCH ×2 (14:58→22:53)
[2018-11-06] MEDS ORDERED: HYDROmorphone 0.5 MG/0.5 ML Syringe IVPUSH ONE (15:34)
[2018-11-06] MEDS ORDERED: Ondansetron 4 MG/2 ML SDV IV PRN (17:41)
[2018-11-06] MEDS ORDERED: Ondansetron 4 MG Tab.DIS PO PRN (17:41)
[2018-11-06] MEDS ORDERED: LORazepam 0.5 MG Tab PO PRN (17:49)
[2018-11-06] MEDS ORDERED: traZODone 50 MG Tab PO PRN (17:49)
--- NOTE | 2018-11-06 18:07 | PCM.HP ---
H&P History of Present Illness - General Date of Service: 11/06/18 Admit Problem/Dx: Admission Diagnosis/Problem Admission Diagnosis/Problem Pneumonia - History of Present Illness Initial Comments - Free Text/Narative: [id number] male was brought to the emergency room by EMS secondary to sudden shortness of breath this morning. At time of interview patient was on BiPAP so history was obtained by both brother and patient. They states that this winter when he woke up he had chills, worsening dyspnea, they increased his O2, gave him breathing treatments, but he remained short of breath. When EMS arrived he had peripheral mottling, O2 sats of 82% with his oxygen concentrator turned all the way up and also using the supplemental oxygen take with the mask. When patient arrived in the emergency room he was placed on BiPAP. Patient has a history of metastatic lung cancer. He was first diagnosed 1 year ago. He went through treatment of radiation and chemotherapy. Unfortunately, patient also more recently found to have a brain metastasis. Patient is on dexamethasone chronically. Patient is also on Keppra for seizure prophylaxis. Patient has a history of chronic atrial fibrillation and is on metoprolol and digoxin. He has hepatitis C and is currently being treated with Epclusa. He has chronic pain and back pain and is on cyclobenzaprine and oxycodone. His anxiety disorder and taking chronic lorazepam as well as sertraline. In the emergency room patient was placed on BiPAP. Initial ABG showed pH 7.50, PCO2 36.9, PO2 70.0, HCO3 28.2, O2 saturation 94.2% on 70% FiO2 with BiPAP 04/17. Repeat blood gas showed pH 7.48, PCO2 of 39.2, PO2 of 157, HCO3 of 28.6, oxygen saturation 97.8, on same settings. Patient had a significantly elevated d-dimer so a CTA of the chest was performed. Impression: 1 no findings of pulmonary embolism. 2. Parenchymal density within the periphery of the right upper and right lower lung as an interval change from previous checks x-ray of 10/14/2018. Findings could represent lymphangitic metastastic disease as well as pneumonia. White count 9370, 71.7% neutrophils with left shift and slight toxic granulation. Sodium 136 , potassium 4.6, BUN 25, currently 1.3, anion gap 16.6, and lactic acid of 3.6. Magnesium was 1.6. She wrecked protein 7.8 with a troponin of less than 0.017. Digoxin normal at 0.9. At this time patient was admitted to the ICU for further care. He was given Rocephin 2 g prior to transfer and had blood cultures done. ER doctor to talk to his oncologist who recommended hospitalization and felt in his current condition he could stay in [facility]. Middle Back Pain Score (Numeric/FACES): 8 - Related Data Allergies/Adverse Reactions: Allergies Allergy/AdvReac Type Severity Reaction Status Date / Time No Known Allergies Allergy Verified 11/06/18 17:55 Home Medications: Home Meds Aspirin 81 g PO DAILY 04/08/18 [History] Budesonide [Pulmicort] 1 dose INH BID 04/08/18 [History] Digoxin [Digox] 125 mcg PO DAILY 04/08/18 [History] Insulin Aspart [NovoLOG] 1 dose INJECT ASDIRECTED 04/08/18 [History] Ipratropium [Atrovent] 1 dose INH Q8HR 04/08/18 [History] Metoprolol Tartrate 50 mg PO BID 04/08/18 [History] Sertraline [Zoloft] 50 mg PO DAILY 04/08/18 [History] Insulin Degludec [Tresiba] 23 units SQ DAILY 09/20/18 [History] LORazepam 1 tab PO BID PRN 09/20/18 [History] Magnesium Oxide 1 tab PO DAILY 09/20/18 [History] Sofosbuvir/Velpatasvir [Epclusa 400 mg-100 mg Tablet] 1 tab PO DAILY 09/20/18 [ History] Pantoprazole Sodium [Protonix] 40 mg PO DAILY 10 Days #10 tablet. 09/22/18 [Rx ] Acetaminophen 650 mg PO Q4H PRN 11/06/18 [History] Albuterol/Ipratropium [DuoNeb 3.0-0.5 MG/3 ML] 3 ml NEB QID 11/06/18 [History] Digoxin [Digox] 250 mcg PO MOFR 11/06/18 [History] dexAMETHasone [Dexamethasone] 4 mg PO BID 11/06/18 [History] oxyCODONE ER [OxyCONTIN] 10 mg PO Q4H PRN 11/06/18 [History] traZODone HCl [Trazodone HCl] 100 mg PO BEDTIME 11/06/18 [History] Past Medical History HEENT History: Reports: Impaired Vision Other HEENT History: reading glasses Cardiovascular History: Reports: Afib, CAD, High Cholesterol, Hypertension Respiratory History: Reports: COPD, Other (See Below) Other Respiratory History: lung cancer with radiation and chemo Gastrointestinal History: Reports: None Genitourinary History: Reports: None Musculoskeletal History: Reports: Back Pain, Chronic, Other (See Below) Other Musculoskeletal History: scoliosis, T4 compressed disk Neurological History: Reports: Other (See Below) Other Neuro History: loss of sensation in limbs at times. Brain tumor with biopsy Psychiatric History: Reports: Anxiety Endocrine/Metabolic History: Reports: Diabetes, Type II Hematologic History: Reports: None Immunologic History: Reports: None Oncologic (Cancer) History: Reports: Lung, Other (See Below) Other Oncologic History: l side lung cancer, "non-small cell" per pt, Dr Fan is oncologist Dermatologic History: Reports: None - Infectious Disease History Infectious Disease History: Reports: Chicken Pox, Hepatitis C - Past Surgical History Cardiovascular Surgical History: Reports: Coronary Artery Stent Respiratory Surgical History: Reports: Other (See Below) GI Surgical History: Reports: Cholecystectomy Social & Family History - Family History Family Medical History: Noncontributory - Tobacco Use Smoking Status *Q: Current Every Day Smoker Years of Tobacco use: 30 Packs/Tins Daily: 1 Used Tobacco, but Quit: Yes Month/Year Tobacco Last Used: - Caffeine Use Caffeine Use: Reports: Coffee, Energy Drinks - Recreational Drug Use Recreational Drug Use: No - Living Situation & Occupation Living situation: Reports: Occupation: Disabled H&P Review of Systems - Review of Systems: Review Of Systems: ROS reveals no pertinent complaints other than HPI. Exam - Exam Exam: See Below - Vital Signs Vital Signs: Last Vital Signs Temp 98.7 F 11/06/18 16:15 Pulse 126 H 11/06/18 11:53 Resp 16 11/06/18 16:15 BP 116/92 H 11/06/18 16:15 Pulse Ox 100 11/06/18 17:49 Weight: 235 lb - Exam Quality Assessment: Supplemental Oxygen General: Alert, Oriented, Cooperative HEENT: Conjunctiva Clear. No: Mucosa Moist & [place] (dry with cracked lips) Neck: Supple, Trachea Midline Lungs: Normal Respiratory Effort, Decreased Breath Sounds Cardiovascular: Irregular Rhythm (irregular rate) GI/Abdominal Exam: Normal Bowel Sounds, Soft, Non-Tender, No Organomegaly, No Distention Extremities: Normal Inspection, Normal Range of Motion, Non-Tender, No Pedal Edema Skin: Warm, Dry, Intact Neuro Extensive - Mental Status: Alert, Oriented x3, Normal Mood/Affect, Normal Cognition, Memory Intact Psychiatric: Alert, Normal Affect, Normal Mood - Patient Data Lab Results Last 24 hrs: Laboratory Results - last 24 hr 11/06/18 11/06/18 11/06/18 Range/Units 11:50 11:50 11:50 WBC 9.37 H (4.23-9.07) K/mm3 RBC 5.33 (4.63-6.08) M/mm3 Hgb 14.6 D (13.7-17.5) gm/L Hct 44.1 (40.1-51.0) % MCV 82.7 D (79.0-92.2) fl MCH 27.4 (25.7-32.2) pg MCHC 33.1 (32.2-35.5) g/dl RDW Std Deviation 49.9 H (35.1-43.9) fL Plt Count 201 D (163-337) K/mm3 MPV 8.8 L (9.4-12.3) fl Neut % (Auto) 71.7 H (34.0-67.9) % Lymph % (Auto) 16.9 L (21.8-53.1) % [place] % (Auto) 3.2 L (5.3-12.2) % Eos % (Auto) 0.1 L (0.8-7.0) Baso % (Auto) 0.2 (0.1-1.2) % Neut # (Auto) 6.72 H (1.78-5.38) K/mm3 Lymph # (Auto) 1.58 (1.32-3.57) K/mm3 [place] # (Auto) 0.30 (0.30-0.82) K/mm3 Eos # (Auto) 0.01 L (0.04-0.54) K/mm3 Baso # (Auto) 0.02 (0.01-0.08) K/mm3 Manual Slide Review Abnormal smear D-Dimer, Quantitative 3.86 H (0.19-0.50) mg/L Puncture Site ABG pH (7.35-7.45) ABG pCO2 (35.0-45.0) mmHg ABG pO2 (80.0-100.0) mmHg ABG HCO3 (22.0-26.0) meq/L ABG O2 Saturation (96.0-97.0) % ABG Base Excess (-2-2.0) [place] Test A-a Gradient mmHg O2 Delivery Device FiO2 (21.00-100.00) % Sodium 136 (136-145) mEq/L Potassium 4.6 (3.5-5.1) mEq/L Chloride 94 L (98-107) mEq/L Carbon Dioxide 30 (21-32) mEq/L Anion Gap 16.6 H (5-15) BUN 25 H (7-18) mg/dL Creatinine 1.3 (0.7-1.3) mg/dL Est Cr Clr Drug Dosing TNP Estimated GFR (MDRD) 56 (>60) mL/min BUN/Creatinine Ratio 19.2 H (14-18) Glucose 223 H (80-115) mg/dL Lactic Acid (0.4-2.0) mmol/L Calcium 9.1 (8.5-10.1) mg/dL Magnesium (1.8-2.4) mg/dl Total Bilirubin 0.6 (0.2-1.0) mg/dL AST 19 (15-37) U/L ALT 34 (16-63) U/L Alkaline Phosphatase 117 H (46-116) U/L Troponin I < 0.017 (0.00-0.056) ng/mL C-Reactive Protein 7.8 H* (<1.0) mg/dL Total Protein 7.0 (6.4-8.2) g/dl Albumin 2.4 L (3.4-5.0) g/dl Globulin 4.6 gm/dL Albumin/Globulin Ratio 0.5 L (1-2) Digoxin (0.9-2.0) ng/mL 11/06/18 11/06/18 11/06/18 Range/Units 11:50 11:50 12:13 WBC (4.23-9.07) K/mm3 RBC (4.63-6.08) M/mm3 Hgb (13.7-17.5) gm/L Hct (40.1-51.0) % MCV (79.0-92.2) fl MCH (25.7-32.2) pg MCHC (32.2-35.5) g/dl RDW Std Deviation (35.1-43.9) fL Plt Count (163-337) K/mm3 MPV (9.4-12.3) fl Neut % (Auto) (34.0-67.9) % Lymph % (Auto) (21.8-53.1) % [place] % (Auto) (5.3-12.2) % Eos % (Auto) (0.8-7.0) Baso % (Auto) (0.1-1.2) % Neut # (Auto) (1.78-5.38) K/mm3 Lymph # (Auto) (1.32-3.57) K/mm3 [place] # (Auto) (0.30-0.82) K/mm3 Eos # (Auto) (0.04-0.54) K/mm3 Baso # (Auto) (0.01-0.08) K/mm3 Manual Slide Review D-Dimer, Quantitative (0.19-0.50) mg/L Puncture Site ABG pH (7.35-7.45) ABG pCO2 (35.0-45.0) mmHg ABG pO2 (80.0-100.0) mmHg ABG HCO3 (22.0-26.0) meq/L ABG O2 Saturation (96.0-97.0) % ABG Base Excess (-2-2.0) Zachary Test A-a Gradient mmHg O2 Delivery Device FiO2 (21.00-100.00) % Sodium (136-145) mEq/L Potassium (3.5-5.1) mEq/L Chloride (98-107) mEq/L Carbon Dioxide (21-32) mEq/L Anion Gap (5-15) BUN (7-18) mg/dL Creatinine (0.7-1.3) mg/dL Est Cr Clr Drug Dosing Estimated GFR (MDRD) (>60) mL/min BUN/Creatinine Ratio (14-18) Glucose (80-115) mg/dL Lactic Acid 3.6 H (0.4-2.0) mmol/L Calcium (8.5-10.1) mg/dL Magnesium 1.6 L (1.8-2.4) mg/dl Total Bilirubin (0.2-1.0) mg/dL AST (15-37) U/L ALT (16-63) U/L Alkaline Phosphatase (46-116) U/L Troponin I (0.00-0.056) ng/mL C-Reactive Protein (<1.0) mg/dL Total Protein (6.4-8.2) g/dl Albumin (3.4-5.0) g/dl Globulin gm/dL Albumin/Globulin Ratio (1-2) Digoxin 0.9 (0.9-2.0) ng/mL 11/06/18 11/06/18 Range/Units 12:21 15:04 WBC (4.23-9.07) K/mm3 RBC (4.63-6.08) M/mm3 Hgb (13.7-17.5) gm/L Hct (40.1-51.0) % MCV (79.0-92.2) fl MCH (25.7-32.2) pg MCHC (32.2-35.5) g/dl RDW Std Deviation (35.1-43.9) fL Plt Count (163-337) K/mm3 MPV (9.4-12.3) fl Neut % (Auto) (34.0-67.9) % Lymph % (Auto) (21.8-53.1) % [place] % (Auto) (5.3-12.2) % Eos % (Auto) (0.8-7.0) Baso % (Auto) (0.1-1.2) % Neut # (Auto) (1.78-5.38) K/mm3 Lymph # (Auto) (1.32-3.57) K/mm3 [place] # (Auto) (0.30-0.82) K/mm3 Eos # (Auto) (0.04-0.54) K/mm3 Baso # (Auto) (0.01-0.08) K/mm3 Manual Slide Review D-Dimer, Quantitative (0.19-0.50) mg/L Puncture Site Lt radial Lt radial ABG pH 7.50 H 7.48 H (7.35-7.45) ABG pCO2 36.9 39.2 (35.0-45.0) mmHg ABG pO2 70.0 L 157.0 H* (80.0-100.0) mmHg ABG HCO3 28.2 H 28.6 H (22.0-26.0) meq/L ABG O2 Saturation 94.2 L 97.8 H (96.0-97.0) % ABG Base Excess 5.2 H 5.1 H (-2-2.0) Zachary Test Positive A-a Gradient 332 242 mmHg O2 Delivery Device Bipap12/6 Bipap 12/6 FiO2 70.00 70.00 (21.00-100.00) % Sodium (136-145) mEq/L Potassium (3.5-5.1) mEq/L Chloride (98-107) mEq/L Carbon Dioxide (21-32) mEq/L Anion Gap (5-15) BUN (7-18) mg/dL Creatinine (0.7-1.3) mg/dL Est Cr Clr Drug Dosing Estimated GFR (MDRD) (>60) mL/min BUN/Creatinine Ratio (14-18) Glucose (80-115) mg/dL Lactic Acid (0.4-2.0) mmol/L Calcium (8.5-10.1) mg/dL Magnesium (1.8-2.4) mg/dl Total Bilirubin (0.2-1.0) mg/dL AST (15-37) U/L ALT (16-63) U/L Alkaline Phosphatase (46-116) U/L Troponin I (0.00-0.056) ng/mL C-Reactive Protein (<1.0) mg/dL Total Protein (6.4-8.2) g/dl Albumin (3.4-5.0) g/dl Globulin gm/dL Albumin/Globulin Ratio (1-2) Digoxin (0.9-2.0) ng/mL Result Diagrams: 11/06/18 11:50 11/06/18 11:50 EKG INTERPRETATION EKG Date: 11/06/18 Rhythm: A-Fib Rate (Beats/Min): 121 [place]: LAD-Left [place] Deviation QRS: Wide (Q waves in lead 3 and aVF.) - Problem List (1) Lung cancer metastatic to brain SNOMED Code(s): 66673536 ICD Code: C34.90 - MALIGNANT NEOPLASM OF UNSP PART OF UNSP BRONCHUS OR LUNG; C79.31 - SECONDARY MALIGNANT NEOPLASM OF BRAIN Status: Acute Current Visit: Yes (2) Atrial fibrillation with RVR SNOMED Code(s): 091759518720461 ICD Code: I48.91 - UNSPECIFIED ATRIAL FIBRILLATION Status: Acute Current Visit: Yes (3) Pneumonia SNOMED Code(s): 207269028 ICD Code: J18.9 - PNEUMONIA, UNSPECIFIED ORGANISM Status: Acute Current Visit: Yes Qualifiers: Pneumonia type: due to unspecified organism Laterality: left Lung location: lower lobe of lung Qualified Code(s): J18.1 - Lobar pneumonia, unspecified organism (4) Sepsis SNOMED Code(s): 41930948 ICD Code: A41.9 - SEPSIS, UNSPECIFIED ORGANISM Status: Acute Current Visit: Yes (5) Respiratory failure with hypoxia SNOMED Code(s): 34457521570340223 ICD Code: J96.91 - RESPIRATORY FAILURE, UNSPECIFIED WITH HYPOXIA Status: Acute Current Visit: Yes Problem List Initiated/Reviewed/Updated: Yes Orders Last 24hrs: Active Orders 24 hr Category Date Time Status Admission Status [Patient Status] [ADT] Routine ADT 11/06/18 15:51 Active BIPAP Adult [RT BiPAP/CPAP] [RC] ASDIRECTED Care 11/06/18 12:07 Active EKG 12 Lead [EKG Documentation Completion] [RC] STAT Care 11/06/18 11:59 Active Oxygen Therapy [RC] ASDIRECTED Care 11/06/18 11:57 Active Oxygen Therapy [RC] PRN Care 11/06/18 17:41 Active POC Glucose [Blood Glucose Check, Bedside] [RC] ONETIME Care 11/06/18 12:09 Active RT Aerosol Therapy [RC] ASDIRECTED Care 11/06/18 12:00 Active Up ad Fina [RC] ASDIRECTED Care 11/06/18 17:41 Active VTE/DVT Education [RC] PER UNIT ROUTINE Care 11/06/18 17:41 Active Vital Signs [RC] Q4HR Care 11/06/18 17:41 Active Full Liquid Diet [DIET] Diet 11/06/18 Dinner Active C-REACTIVE PROTEIN [CHEM] AM Lab 11/07/18 05:11 Ordered CBC WITH AUTO DIFF [HEME] AM Lab 11/07/18 05:11 Ordered COMPREHENSIVE METABOLIC PN,CMP [CHEM] AM Lab 11/07/18 05:11 Ordered CULTURE BLOOD [BC] Stat Lab 11/06/18 12:13 Received MAGNESIUM [CHEM] AM Lab 11/07/18 05:11 Ordered TROPONIN I [CHEM] AM Lab 11/07/18 05:11 Ordered Albuterol/Ipratropium [DuoNeb 3.0-0.5 MG/3 ML] Med 11/06/18 21:00 Ordered 3 ml NEB QID Aspirin Med 11/07/18 09:00 Ordered 81,000 mg PO DAILY Budesonide [Pulmicort] Med 11/06/18 21:00 Ordered DOSE mg INH BID Digoxin [Lanoxin] Med 11/06/18 18:00 Ordered 125 mcg PO DAILY Digoxin [Lanoxin] Med 11/07/18 09:00 Once 125 mcg PO ONETIME ONE Doxycycline [Vibramycin] 100 mg Med 11/06/18 21:00 Active Sodium Chloride 0.9% [Normal Saline] 100 ml IV Q12HR Heparin Sodium Med 11/06/18 17:45 Active 5,000 units SUBCUT Q8H LORazepam Med 11/06/18 17:49 Ordered 1 tab PO TID PRN Magnesium Oxide Med 11/07/18 09:00 Ordered 400 mg PO DAILY Metoprolol Tartrate [Lopressor] Med 11/06/18 21:00 Ordered 50 mg PO BID Ondansetron [Zofran ODT] Med 11/06/18 17:41 Active 4 mg PO Q4H PRN Ondansetron [Zofran] Med 11/06/18 17:41 Active 4 mg IV Q4H PRN Pantoprazole [ProTONIX] Med 11/07/18 09:00 Ordered 40 mg PO DAILY Sertraline [Zoloft] Med 11/07/18 09:00 Ordered 50 mg PO DAILY Sodium Chloride 0.9% [Normal Saline] 1,000 ml Med 11/06/18 15:00 Active IV ASDIRECTED Sodium Chloride 0.9% [Normal Saline] 100 ml Med 11/06/18 12:30 Active IV ASDIRECTED Sofosbuvir/Velpatasvir [Epclusa 400 mg-100 mg Tablet] Med 11/07/18 09:00 Ordered 1 tab PO DAILY cefTRIAXone [Rocephin] 2 gm Med 11/07/18 14:00 Active Sodium Chloride 0.9% [Normal Saline] 100 ml IV Q24H dexAMETHasone Med 11/06/18 21:00 Ordered 4 mg PO BID oxyCODONE Med 11/06/18 17:58 Active 10 mg PO Q4H PRN traZODone HCl Med 11/06/18 17:49 Ordered 100 mg PO BEDTIME PRN Resuscitation Status Routine Resus Stat 11/06/18 17:41 Ordered Medication Orders Albuterol/Ipratropium (Duoneb 3.0-0.5 Mg/3 Ml) 3 ml NEB QID [facility] Aspirin (Aspirin) 81,000 mg PO DAILY [facility] Budesonide (Pulmicort) mg INH BID [facility] Dexamethasone (Dexamethasone) 4 mg PO BID [facility] Digoxin (Lanoxin) 125 mcg PO DAILY [facility] Digoxin (Lanoxin) 125 mcg PO ONETIME ONE Stop: 11/07/18 09:01 Heparin Sodium (Porcine) (Heparin Sodium) 5,000 units SUBCUT Q8H [facility] Sodium Chloride (Normal Saline) 100 mls @ 60 mls/hr IV ASDIRECTED [facility] Last Admin: 11/06/18 12:42 Dose: 60 mls/hr Sodium Chloride (Normal Saline) 1,000 mls @ 125 mls/hr IV ASDIRECTED [facility] Last Admin: 11/06/18 14:58 Dose: 125 mls/hr Ceftriaxone Sodium 2 gm/ (Sodium Chloride) 100 mls @ 200 mls/hr IV Q24H [facility] Doxycycline Hyclate 100 mg/ (Sodium Chloride) 100 mls @ 100 mls/hr IV Q12HR [facility] Magnesium Oxide (Magnesium Oxide) 400 mg PO DAILY [facility] Metoprolol Tartrate (Lopressor) 50 mg PO BID [facility] Non-Formulary Medication (Lorazepam) 1 tab PO TID PRN PRN Reason: Anxiety Non-Formulary Medication (Sofosbuvir/Velpatasvir [Epclusa 400 Mg-100 Mg Tablet] ) 1 tab PO DAILY [facility] Non-Formulary Medication (Trazodone Hcl) 100 mg PO BEDTIME PRN PRN Reason: Insomnia Ondansetron HCl (Zofran Odt) 4 mg PO Q4H PRN PRN Reason: nausea, able to take PO Ondansetron HCl (Zofran) 4 mg IV Q4H PRN PRN Reason: Nausea/Vomiting Oxycodone HCl (Oxycodone) 10 mg PO Q4H PRN PRN Reason: Pain Pantoprazole Sodium (Protonix) 40 mg PO DAILY SANNA Sertraline HCl (Zoloft) 50 mg PO DAILY SANNA Assessment/Plan Comment:: Assessment * 63-year-old male with lung cancer with metastasis to the brain present to the emergency room in respiratory failure * CT of the chest is consistent with pneumonia. * insulin-dependent diabetes. * Atrial fibrillation with RVR controlled with digoxin and metoprolol * hepatitis C currently being treated with Epclusa * COPD- patient is on 2-4 L/m of nasal cannula O2 at home Plan * Continue BiPAP for support. RT to titrate * Rocephin 2 g IV given in ER and will continue that every 24 hours * Doxycycline 100 mg IV every 12 hours * Urine for Legionella and pneumococcus * Normal saline 125 mL per hour * Okay to remove BiPAP for meals if able to tolerate 02. * blood cultures pending * CBC, CMP, hemoglobin A1c, C-reactive protein, magnesium in the morning * Restart home meds as appropriate. Please see orders. * CODE STATUS: Full code * Overall prognosis is poor
[2018-11-06] MEDS: Heparin Sodium 5,000 Units/ML Vial SUBCUT SCH (18:20)
[2018-11-06] MEDS ORDERED: Magnesium Sulfate/Water 2 GM in Premix Bag 1 BAG IV ONE (19:00)
[2018-11-06] MEDS: Insulin Lispro 100 Units/ML 3 ML Vial SUBCUT SCH ×2 (19:44→23:40)
[2018-11-06] MEDS: Budesonide 0.5 MG/2 ML Neb Susp INH SCH (20:35)
[2018-11-06] MEDS: Albuterol/Ipratropium 3.0-0.5 MG/3 ML Neb Soln NEB SCH (20:35)
[2018-11-06] MEDS: Dexamethasone 4 MG Tab PO SCH (20:56)
[2018-11-06] MEDS: oxyCODONE 5 MG Tab PO PRN (20:57)
[2018-11-06] MEDS ORDERED: Albuterol/Ipratropium 3.0-0.5 MG/3 ML Neb Soln NEB SCH (21:00)
[2018-11-06] MEDS ORDERED: Insulin Lispro 100 Units/ML 3 ML Vial SUBCUT SCH (22:00)
[2018-11-06] MEDS: Doxycycline 100 MG in Sodium Chloride 0.9% 100 ML IV SCH (22:23)
[2018-11-06] MEDS: Metoprolol Tartrate 100 MG Tab PO SCH (22:44)
[2018-11-07] MEDS: Heparin Sodium 5,000 Units/ML Vial SUBCUT SCH ×3 (02:10→17:00)
[2018-11-07] MEDS: Albuterol/Ipratropium 3.0-0.5 MG/3 ML Neb Soln NEB SCH ×3 (05:30→15:14)
[2018-11-07] MEDS: Sodium Chloride 0.9% 1,000 ML IV SCH (06:50)
[2018-11-07] MEDS: oxyCODONE 5 MG Tab PO PRN ×3 (07:31→20:27)
[2018-11-07] MEDS: Insulin Lispro 100 Units/ML 3 ML Vial SUBCUT SCH ×5 (07:33→21:25)
[2018-11-07] MEDS: Metoprolol Tartrate 100 MG Tab PO SCH ×2 (08:20→20:27)
[2018-11-07] MEDS: Sertraline 50 MG Tab PO SCH (08:20)
[2018-11-07] MEDS: Dexamethasone 4 MG Tab PO SCH ×2 (08:20→20:26)
[2018-11-07] MEDS: Magnesium Oxide 400 MG Tab PO SCH (08:22)
[2018-11-07] MEDS: Pantoprazole 40 MG Tab.CR PO SCH (08:22)
[2018-11-07] MEDS: Aspirin 81 MG Tab.EC PO SCH (08:22)
[2018-11-07] MEDS: SOFOSBUVIR PO SCH (08:24)
[2018-11-07] MEDS: VELPATASVIR PO SCH (08:24)
[2018-11-07] MEDS: Doxycycline 100 MG in Sodium Chloride 0.9% 100 ML IV SCH ×2 (08:52→20:27)
[2018-11-07] MEDS ORDERED: Insulin Glarg,Human.Rec.Analog 100 UNIT/ML ML SUBCUT SCH (09:00)
[2018-11-07] MEDS ORDERED: Aspirin 81 MG Tab.Chew PO SCH (09:00)
[2018-11-07] MEDS: Budesonide 0.5 MG/2 ML Neb Susp INH SCH ×2 (09:12→20:40)
[2018-11-07] MEDS ORDERED: levETIRAcetam 500 MG Tab PO SCH ×2 (10:00→21:00)
--- NOTE | 2018-11-07 10:12 | US ---
Right lower extremity deep venous ultrasound: Duplex and color flow imaging was obtained of the right common femoral, proximal greater saphenous, superficial femoral, popliteal, posterior tibial and peroneal veins. Left common femoral vein was also evaluated. Comparison: No prior venous imaging is available. Findings: Peroneal vein not well seen for compressibility. Peroneal vein shows normal phasic flow and augmentation. Other veins show normal phasic flow, compression and augmentation. Impression: 1. No evidence of deep venous thrombosis within the right lower extremity or within the left common femoral vein. Diagnostic code #1
[2018-11-07] MEDS ORDERED: Sodium Chloride 0.9% 10 ML Syringe FLUSH PRN (11:24)
[2018-11-07] MEDS ORDERED: Digoxin 250 MCG Tab PO SCH (12:00)
--- NOTE | 2018-11-07 13:00 | PCM.PN ---
- General Info Date of Service: 11/07/18 Admission Dx/Problem (Free Text): Admission Diagnosis/Problem Admission Diagnosis/Problem Pneumonia Subjective Update: November 07, 2018 patient had a good night. He was weaned down to 4 L nasal cannula by morning. He was afebrile and able to eat breakfast. For his breath continues but is much improved. Afebrile. - Review of Systems General: Reports: No Symptoms HEENT: Reports: No Symptoms Pulmonary: Reports: Shortness of Breath Cardiovascular: Denies: Chest Pain, Dyspnea on Exertion Gastrointestinal: Reports: No Symptoms - Patient Data Vitals - Most Recent: Last Vital Signs Temp 96.9 F 11/07/18 12:00 Pulse 80 11/07/18 12:00 Resp 22 H 11/07/18 12:00 BP 93/67 11/07/18 12:00 Pulse Ox 93 L 11/07/18 12:00 Weight - Most Recent: 234 lb 12.8 oz I&O - Last 24 Hours: Intake & Output 11/06/18 11/07/18 11/07/18 22:59 06:59 14:59 Intake Total 300 2232 Output Total 800 850 Balance -500 1382 Lab Results Last 24 Hours: Laboratory Results - last 24 hr 11/06/18 11/06/18 11/06/18 Range/Units 11:50 12:13 15:04 WBC (4.23-9.07) K/mm3 RBC (4.63-6.08) M/mm3 Hgb (13.7-17.5) gm/L Hct (40.1-51.0) % MCV (79.0-92.2) fl MCH (25.7-32.2) pg MCHC (32.2-35.5) g/dl RDW Std Deviation (35.1-43.9) fL Plt Count (163-337) K/mm3 MPV (9.4-12.3) fl Neut % (Auto) (34.0-67.9) % Lymph % (Auto) (21.8-53.1) % Emery % (Auto) (5.3-12.2) % Eos % (Auto) (0.8-7.0) Baso % (Auto) (0.1-1.2) % Neut # (Auto) (1.78-5.38) K/mm3 Lymph # (Auto) (1.32-3.57) K/mm3 Emery # (Auto) (0.30-0.82) K/mm3 Eos # (Auto) (0.04-0.54) K/mm3 Baso # (Auto) (0.01-0.08) K/mm3 Manual Slide Review Puncture Site Lt radial ABG pH 7.48 H (7.35-7.45) ABG pCO2 39.2 (35.0-45.0) mmHg ABG pO2 157.0 H* (80.0-100.0) mmHg ABG HCO3 28.6 H (22.0-26.0) meq/L ABG O2 Saturation 97.8 H (96.0-97.0) % ABG Base Excess 5.1 H (-2-2.0) Zachary Test Positive A-a Gradient 242 mmHg O2 Delivery Device Bipap 12/6 FiO2 70.00 (21.00-100.00) % Sodium (136-145) mEq/L Potassium (3.5-5.1) mEq/L Chloride (98-107) mEq/L Carbon Dioxide (21-32) mEq/L Anion Gap (5-15) BUN (7-18) mg/dL Creatinine (0.7-1.3) mg/dL Est Cr Clr Drug Dosing mL/min Estimated GFR (MDRD) (>60) mL/min BUN/Creatinine Ratio (14-18) Glucose (80-115) mg/dL POC Glucose (80-115) mg/dL Lactic Acid 3.6 H (0.4-2.0) mmol/L Calcium (8.5-10.1) mg/dL Magnesium 1.6 L (1.8-2.4) mg/dl Total Bilirubin (0.2-1.0) mg/dL AST (15-37) U/L ALT (16-63) U/L Alkaline Phosphatase (46-116) U/L Troponin I (0.00-0.056) ng/mL C-Reactive Protein (<1.0) mg/dL Total Protein (6.4-8.2) g/dl Albumin (3.4-5.0) g/dl Globulin gm/dL Albumin/Globulin Ratio (1-2) 11/06/18 11/06/18 11/06/18 Range/Units 18:44 18:55 23:39 WBC (4.23-9.07) K/mm3 RBC (4.63-6.08) M/mm3 Hgb (13.7-17.5) gm/L Hct (40.1-51.0) % MCV (79.0-92.2) fl MCH (25.7-32.2) pg MCHC (32.2-35.5) g/dl RDW Std Deviation (35.1-43.9) fL Plt Count (163-337) K/mm3 MPV (9.4-12.3) fl Neut % (Auto) (34.0-67.9) % Lymph % (Auto) (21.8-53.1) % Emery % (Auto) (5.3-12.2) % Eos % (Auto) (0.8-7.0) Baso % (Auto) (0.1-1.2) % Neut # (Auto) (1.78-5.38) K/mm3 Lymph # (Auto) (1.32-3.57) K/mm3 Emery # (Auto) (0.30-0.82) K/mm3 Eos # (Auto) (0.04-0.54) K/mm3 Baso # (Auto) (0.01-0.08) K/mm3 Manual Slide Review Puncture Site ABG pH (7.35-7.45) ABG pCO2 (35.0-45.0) mmHg ABG pO2 (80.0-100.0) mmHg ABG HCO3 (22.0-26.0) meq/L ABG O2 Saturation (96.0-97.0) % ABG Base Excess (-2-2.0) Zachary Test A-a Gradient mmHg O2 Delivery Device FiO2 (21.00-100.00) % Sodium (136-145) mEq/L Potassium (3.5-5.1) mEq/L Chloride (98-107) mEq/L Carbon Dioxide (21-32) mEq/L Anion Gap (5-15) BUN (7-18) mg/dL Creatinine (0.7-1.3) mg/dL Est Cr Clr Drug Dosing mL/min Estimated GFR (MDRD) (>60) mL/min BUN/Creatinine Ratio (14-18) Glucose (80-115) mg/dL POC Glucose 180 H 252 H (80-115) mg/dL Lactic Acid 1.2 (0.4-2.0) mmol/L Calcium (8.5-10.1) mg/dL Magnesium (1.8-2.4) mg/dl Total Bilirubin (0.2-1.0) mg/dL AST (15-37) U/L ALT (16-63) U/L Alkaline Phosphatase (46-116) U/L Troponin I (0.00-0.056) ng/mL C-Reactive Protein (<1.0) mg/dL Total Protein (6.4-8.2) g/dl Albumin (3.4-5.0) g/dl Globulin gm/dL Albumin/Globulin Ratio (1-2) 11/07/18 11/07/18 11/07/18 Range/Units 04:33 04:33 06:47 WBC 5.74 (4.23-9.07) K/mm3 RBC 4.18 L (4.63-6.08) M/mm3 Hgb 11.1 L D (13.7-17.5) gm/L Hct 34.9 L (40.1-51.0) % MCV 83.5 (79.0-92.2) fl MCH 26.6 (25.7-32.2) pg MCHC 31.8 L (32.2-35.5) g/dl RDW Std Deviation 49.7 H (35.1-43.9) fL Plt Count 134 L (163-337) K/mm3 MPV 9.6 (9.4-12.3) fl Neut % (Auto) 81.4 H (34.0-67.9) % Lymph % (Auto) 7.7 L (21.8-53.1) % Emery % (Auto) 3.8 L (5.3-12.2) % Eos % (Auto) 0 L (0.8-7.0) Baso % (Auto) 0.3 (0.1-1.2) % Neut # (Auto) 4.67 (1.78-5.38) K/mm3 Lymph # (Auto) 0.44 L (1.32-3.57) K/mm3 Emery # (Auto) 0.22 L (0.30-0.82) K/mm3 Eos # (Auto) 0.00 L (0.04-0.54) K/mm3 Baso # (Auto) 0.02 (0.01-0.08) K/mm3 Manual Slide Review Abnormal smear Puncture Site ABG pH (7.35-7.45) ABG pCO2 (35.0-45.0) mmHg ABG pO2 (80.0-100.0) mmHg ABG HCO3 (22.0-26.0) meq/L ABG O2 Saturation (96.0-97.0) % ABG Base Excess (-2-2.0) Zachary Test A-a Gradient mmHg O2 Delivery Device FiO2 (21.00-100.00) % Sodium 137 (136-145) mEq/L Potassium 4.4 (3.5-5.1) mEq/L Chloride 100 (98-107) mEq/L Carbon Dioxide 30 (21-32) mEq/L Anion Gap 11.4 (5-15) BUN 15 (7-18) mg/dL Creatinine 0.8 (0.7-1.3) mg/dL Est Cr Clr Drug Dosing 98.85 mL/min Estimated GFR (MDRD) > 60 (>60) mL/min BUN/Creatinine Ratio 18.8 H (14-18) Glucose 211 H (80-115) mg/dL POC Glucose 211 H (80-115) mg/dL Lactic Acid (0.4-2.0) mmol/L Calcium 8.6 (8.5-10.1) mg/dL Magnesium 2.1 (1.8-2.4) mg/dl Total Bilirubin 0.3 (0.2-1.0) mg/dL AST 16 (15-37) U/L ALT 28 (16-63) U/L Alkaline Phosphatase 87 (46-116) U/L Troponin I < 0.017 (0.00-0.056) ng/mL C-Reactive Protein 21.4 H* (<1.0) mg/dL Total Protein 5.5 L (6.4-8.2) g/dl Albumin 1.8 L (3.4-5.0) g/dl Globulin 3.7 gm/dL Albumin/Globulin Ratio 0.5 L (1-2) 11/07/18 Range/Units 11:57 WBC (4.23-9.07) K/mm3 RBC (4.63-6.08) M/mm3 Hgb (13.7-17.5) gm/L Hct (40.1-51.0) % MCV (79.0-92.2) fl MCH (25.7-32.2) pg MCHC (32.2-35.5) g/dl RDW Std Deviation (35.1-43.9) fL Plt Count (163-337) K/mm3 MPV (9.4-12.3) fl Neut % (Auto) (34.0-67.9) % Lymph % (Auto) (21.8-53.1) % Emery % (Auto) (5.3-12.2) % Eos % (Auto) (0.8-7.0) Baso % (Auto) (0.1-1.2) % Neut # (Auto) (1.78-5.38) K/mm3 Lymph # (Auto) (1.32-3.57) K/mm3 Emery # (Auto) (0.30-0.82) K/mm3 Eos # (Auto) (0.04-0.54) K/mm3 Baso # (Auto) (0.01-0.08) K/mm3 Manual Slide Review Puncture Site ABG pH (7.35-7.45) ABG pCO2 (35.0-45.0) mmHg ABG pO2 (80.0-100.0) mmHg ABG HCO3 (22.0-26.0) meq/L ABG O2 Saturation (96.0-97.0) % ABG Base Excess (-2-2.0) Zachary Test A-a Gradient mmHg O2 Delivery Device FiO2 (21.00-100.00) % Sodium (136-145) mEq/L Potassium (3.5-5.1) mEq/L Chloride (98-107) mEq/L Carbon Dioxide (21-32) mEq/L Anion Gap (5-15) BUN (7-18) mg/dL Creatinine (0.7-1.3) mg/dL Est Cr Clr Drug Dosing mL/min Estimated GFR (MDRD) (>60) mL/min BUN/Creatinine Ratio (14-18) Glucose (80-115) mg/dL POC Glucose 278 H (80-115) mg/dL Lactic Acid (0.4-2.0) mmol/L Calcium (8.5-10.1) mg/dL Magnesium (1.8-2.4) mg/dl Total Bilirubin (0.2-1.0) mg/dL AST (15-37) U/L ALT (16-63) U/L Alkaline Phosphatase (46-116) U/L Troponin I (0.00-0.056) ng/mL C-Reactive Protein (<1.0) mg/dL Total Protein (6.4-8.2) g/dl Albumin (3.4-5.0) g/dl Globulin gm/dL Albumin/Globulin Ratio (1-2) Ashu Results Last 24 Hours: Microbiology 11/06/18 12:13 Aerobic Blood Culture - Preliminary Blood NO GROWTH AFTER 1 DAY Anaerobic Blood Culture - Preliminary NO GROWTH AFTER 1 DAY Med Orders - Current: Current Medications Albuterol/Ipratropium (Duoneb 3.0-0.5 Mg/3 Ml) 3 ml NEB QIDRT [facility] Last Admin: 11/07/18 09:12 Dose: 3 ml Aspirin (Halfprin) 81 mg PO DAILY [facility] Last Admin: 11/07/18 08:22 Dose: 81 mg Budesonide (Pulmicort) 0.5 mg INH BID [facility] Last Admin: 11/07/18 09:12 Dose: 0.5 mg Dexamethasone (Dexamethasone) 4 mg PO BID [facility] Last Admin: 11/07/18 08:20 Dose: 4 mg Digoxin (Lanoxin) 125 mcg PO SuTuThSa@1200 [facility] Digoxin (Lanoxin) 250 mcg PO MoWeFr@1200 [facility] Last Admin: 11/07/18 11:59 Dose: 250 mcg Heparin Sodium (Porcine) (Heparin Sodium) 5,000 units SUBCUT Q8H [facility] Last Admin: 11/07/18 08:52 Dose: 5,000 units Sodium Chloride (Normal Saline) 100 mls @ 60 mls/hr IV ASDIRECTED [facility] Last Admin: 11/06/18 12:42 Dose: 60 mls/hr Ceftriaxone Sodium 2 gm/ (Sodium Chloride) 100 mls @ 200 mls/hr IV Q24H [facility] Doxycycline Hyclate 100 mg/ (Sodium Chloride) 100 mls @ 100 mls/hr IV Q12HR [facility] Last Admin: 11/07/18 08:52 Dose: 100 mls/hr Insulin Glargine (Lantus) 15 unit SUBCUT DAILY [facility] Last Admin: 11/07/18 08:23 Dose: 15 units Insulin Human Lispro (Humalog) 0 unit SUBCUT QIDACANDBED [facility]; Protocol Last Admin: 11/07/18 12:01 Dose: 3 unit Levetiracetam (Keppra) 500 mg PO 2100 [facility] Lorazepam (Ativan) 0.5 mg PO TID PRN PRN Reason: Anxiety Last Admin: 11/07/18 11:02 Dose: 0.5 mg Magnesium Oxide (Magnesium Oxide) 400 mg PO DAILY [facility] Last Admin: 11/07/18 08:22 Dose: 400 mg Metoprolol Tartrate (Lopressor) 50 mg PO BID [facility] Last Admin: 11/07/18 08:20 Dose: 50 mg Ondansetron HCl (Zofran Odt) 4 mg PO Q4H PRN PRN Reason: nausea, able to take PO Ondansetron HCl (Zofran) 4 mg IV Q4H PRN PRN Reason: Nausea/Vomiting Oxycodone HCl (Oxycodone) 10 mg PO Q4H PRN PRN Reason: Pain Last Admin: 11/07/18 07:31 Dose: 10 mg Pantoprazole Sodium (Protonix) 40 mg PO DAILY [facility] Last Admin: 11/07/18 08:22 Dose: 40 mg Sofosbuvir/Velpatasvir [Epclusa ] 400mg-100mg Tablet Ptom 1 each PO DAILY [facility] Last Admin: 11/07/18 08:24 Dose: 1 each Sertraline HCl (Zoloft) 50 mg PO DAILY [facility] Last Admin: 11/07/18 08:20 Dose: 50 mg Sodium Chloride (Saline Flush) 10 ml FLUSH ASDIRECTED PRN PRN Reason: Keep Vein Open Trazodone HCl (Trazodone) 100 mg PO BEDTIME PRN PRN Reason: Insomnia Discontinued Medications Albuterol/Ipratropium (Duoneb 3.0-0.5 Mg/3 Ml) 3 ml NEB ONETIME ONE Stop: 11/06/18 12:00 Last Admin: 11/06/18 12:05 Dose: 3 ml Albuterol/Ipratropium (Duoneb 3.0-0.5 Mg/3 Ml) Confirm Administered Dose 3 ml .ROUTE .STK-MED ONE Stop: 11/06/18 12:00 Last Admin: 11/06/18 12:05 Dose: Not Given Albuterol/Ipratropium (Duoneb 3.0-0.5 Mg/3 Ml) 3 ml NEB QID [facility] Dexamethasone (Dexamethasone) 4 mg IVPUSH ONETIME ONE Stop: 11/06/18 12:16 Last Admin: 11/06/18 12:19 Dose: 4 mg Hydromorphone HCl (Dilaudid) 0.5 mg IVPUSH ONETIME ONE Stop: 11/06/18 15:35 Last Admin: 11/06/18 15:40 Dose: 0.5 mg Sodium Chloride (Normal Saline) 500 mls @ 999 mls/hr IV .BOLUS ONE Stop: 11/06/18 13:52 Last Admin: 11/06/18 13:29 Dose: 999 mls/hr Ceftriaxone Sodium 2 gm/ (Sodium Chloride) 100 mls @ 200 mls/hr IV NOW STA Stop: 11/06/18 14:48 Last Admin: 11/06/18 14:25 Dose: 200 mls/hr Sodium Chloride (Normal Saline) 1,000 mls @ 125 mls/hr IV ASDIRECTED [facility] Last Admin: 11/07/18 06:50 Dose: 125 mls/hr Magnesium Sulfate 2 gm/ Premix 50 mls @ 25 mls/hr IV ONETIME ONE Stop: 11/06/18 20:59 Last Admin: 11/06/18 19:20 Dose: 25 mls/hr Insulin Human Lispro (Humalog) 0 unit SUBCUT QIDACANDBED [facility]; Protocol Iopamidol (Isovue-370 (76%)) 100 ml IVPUSH ONETIME ONE Stop: 11/06/18 12:27 Last Admin: 11/06/18 12:41 Dose: 100 ml Levetiracetam (Keppra) 500 mg PO QPM [facility] Last Admin: 11/07/18 11:02 Dose: 500 mg Sodium Chloride (Saline Flush) 10 ml FLUSH ONETIME ONE Stop: 11/06/18 12:27 Last Admin: 11/06/18 12:41 Dose: 10 ml - Exam Quality Assessment: Supplemental Oxygen General: Alert, Oriented HEENT: Pupils Equal Neck: Supple Lungs: Wheezing. No: Normal Respiratory Effort (mildly increased respiratory rate and effort) Cardiovascular: Irregular Rhythm (rate between 80s and 90s) Extremities: Other (tender right lower extremity with edema.) Skin: Warm Neurological: No New Focal Deficit Psy/Mental Status: Alert, Normal Affect, Normal Mood - Problem List & Annotations (1) Lung cancer metastatic to brain SNOMED Code(s): 94995512 Code(s): C34.90 - MALIGNANT NEOPLASM OF UNSP PART OF UNSP BRONCHUS OR LUNG; C79.31 - SECONDARY MALIGNANT NEOPLASM OF BRAIN Status: Acute Current Visit: Yes (2) Atrial fibrillation with RVR SNOMED Code(s): 619815725388712 Code(s): I48.91 - UNSPECIFIED ATRIAL FIBRILLATION Status: Acute Current Visit: Yes (3) Pneumonia SNOMED Code(s): 603669588 Code(s): J18.9 - PNEUMONIA, UNSPECIFIED ORGANISM Status: Acute Current Visit: Yes Qualifiers: Pneumonia type: due to unspecified organism Laterality: left Lung location: lower lobe of lung Qualified Code(s): J18.1 - Lobar pneumonia, unspecified organism (4) Sepsis SNOMED Code(s): 56971416 Code(s): A41.9 - SEPSIS, UNSPECIFIED ORGANISM Status: Acute Current Visit : Yes (5) Respiratory failure with hypoxia SNOMED Code(s): 86409770334931958 Code(s): J96.91 - RESPIRATORY FAILURE, UNSPECIFIED WITH HYPOXIA Status: Acute Current Visit: Yes - Problem List Review Problem List Initiated/Reviewed/Updated: Yes - My Orders Last 24 Hours: My Active Orders 11/06/18 17:41 Oxygen Therapy [RC] PRN Up ad Fina [RC] ASDIRECTED VTE/DVT Education [RC] BID Vital Signs [RC] Q4HR Ondansetron [Zofran ODT] 4 mg PO Q4H PRN Ondansetron [Zofran] 4 mg IV Q4H PRN Resuscitation Status Routine 11/06/18 17:45 Heparin Sodium 5,000 units SUBCUT Q8H 11/06/18 17:49 LORazepam [Ativan] 0.5 mg PO TID PRN traZODone 100 mg PO BEDTIME PRN 11/06/18 17:58 oxyCODONE 10 mg PO Q4H PRN 11/06/18 18:28 Blood Glucose Check, Bedside [RC] QIDACANDBED 11/06/18 18:46 Insulin Lispro [HumaLOG] 0 unit SUBCUT QIDACANDBED 11/06/18 20:00 LEGIONELLA ANTIGEN [MREF] Routine STREP PNEUMONIAE ANTIGEN [MREF] Routine 11/06/18 21:00 CULTURE SPUTUM + SMEAR [RM] Routine Albuterol/Ipratropium [DuoNeb 3.0-0.5 MG/3 ML] 3 ml NEB QIDRT Budesonide [Pulmicort] 0.5 mg INH BID Doxycycline [Vibramycin] 100 mg Sodium Chloride 0.9% [Normal Saline] 100 ml IV Q12HR Metoprolol Tartrate [Lopressor] 50 mg PO BID dexAMETHasone 4 mg PO BID 11/07/18 07:44 PT Evaluation and Treatment [CONS] Routine 11/07/18 07:45 OT Evaluation and Treatment [CONS] Routine 11/07/18 09:00 Aspirin [Halfprin] 81 mg PO DAILY Insulin Glarg,Human.Rec.Analog [LantUS] 15 unit SUBCUT DAILY Magnesium Oxide 400 mg PO DAILY Pantoprazole [ProTONIX] 40 mg PO DAILY Patient's Own Medication [Ptom] 1 each PO DAILY Sertraline [Zoloft] 50 mg PO DAILY 11/07/18 11:24 Sodium Chloride 0.9% [Saline Flush] 10 ml FLUSH ASDIRECTED PRN Saline Lock Insert [OM.PC] Routine 11/07/18 12:00 Digoxin [Lanoxin] 250 mcg PO MoWeFr@1200 11/07/18 14:00 cefTRIAXone [Rocephin] 2 gm Sodium Chloride 0.9% [Normal Saline] 100 ml IV Q24H 11/07/18 21:00 levETIRAcetam [Keppra] 500 mg PO 2100 11/07/18 Lunch [place] [employer] Diet [DIET] 11/08/18 12:00 Digoxin [Lanoxin] 125 mcg PO SuTuThSa@1200 - Plan Plan:: Assessment * 63-year-old male with lung cancer with metastasis to the brain present to the emergency room in respiratory failure * CT of the chest is consistent with pneumonia. * insulin-dependent diabetes. * Atrial fibrillation with RVR controlled with digoxin and metoprolol * hepatitis C currently being treated with Epclusa * COPD- patient is on 2-4 L/m of nasal cannula O2 at home * CBC, CMP, mag, anion gap show no significant abnormalities. She wrecked her protein is elevated secondary to his cancer. Albumin is low at 1.8. Please see above for details on labs. Plan * Continue BiPAP as needed and wean down to home O2 of 2-4 L. RT to titrate * Rocephin 2 g IV given in ER and will continue that every 24 hours * Doxycycline 100 mg IV every 12 hours * Urine for Legionella and pneumococcus * stop IV fluids since patient is taking good oral intake * Lantus 15 units this morning and low-dose sliding scale insulin * blood cultures pending * CBC, CMP, hemoglobin A1c, C-reactive protein, magnesium in the morning * Restart home meds as appropriate. Please see orders. * CODE STATUS: Full code * Overall prognosis is poor
[2018-11-07] MEDS ORDERED: cefTRIAXone 2 GM in Sodium Chloride 0.9% 100 ML IV SCH (14:00)
[2018-11-07] MEDS ORDERED: LORazepam 2 MG/ML SDV ONE ×2 (15:58→16:26)
[2018-11-07] MEDS ORDERED: LORazepam 2 MG/ML SDV IVPUSH ONE (16:05)
[2018-11-07] MEDS ORDERED: LORazepam 2 MG/ML SDV IVPUSH STA (16:25)
[2018-11-07] MEDS: Nicotine 21 MG/24 Hr Patch TRDERM SCH (17:09)
[2018-11-07] MEDS ORDERED: Levalbuterol HCl 1.25 MG/3 ML Neb NEB SCH (18:00)
[2018-11-07] MEDS: LORazepam 2 MG/ML SDV IVPUSH PRN ×3 (18:53→23:58)
[2018-11-07] MEDS: Ipratropium 0.02% 0.5 MG/2.5 ML Neb Soln NEB SCH (20:40)
[2018-11-07] MEDS ORDERED: Insulin Glarg,Human.Rec.Analog 100 UNIT/ML ML SUBCUT STA (21:12)
[2018-11-08] MEDS: LORazepam 2 MG/ML SDV IVPUSH PRN ×4 (01:13→08:03)
[2018-11-08] MEDS: Heparin Sodium 5,000 Units/ML Vial SUBCUT SCH (01:13)
[2018-11-08] MEDS: Levalbuterol HCl 1.25 MG/3 ML Neb NEB SCH ×2 (02:40→08:47)
[2018-11-08] MEDS: Ipratropium 0.02% 0.5 MG/2.5 ML Neb Soln NEB SCH ×2 (02:40→08:47)
[2018-11-08] MEDS: Insulin Lispro 100 Units/ML 3 ML Vial SUBCUT SCH (06:08)
[2018-11-08 06:51] LABS: HEMOGLOBIN A1C 10.5 % (4.50-6.20)
[2018-11-08] MEDS: oxyCODONE 5 MG Tab PO PRN (07:59)
[2018-11-08] MEDS: Metoprolol Tartrate 100 MG Tab PO SCH (07:59)
[2018-11-08] MEDS: Aspirin 81 MG Tab.EC PO SCH (08:01)
[2018-11-08] MEDS: Magnesium Oxide 400 MG Tab PO SCH (08:01)
[2018-11-08] MEDS: Dexamethasone 4 MG Tab PO SCH (08:01)
[2018-11-08] MEDS: Sertraline 50 MG Tab PO SCH (08:01)
[2018-11-08] MEDS: Pantoprazole 40 MG Tab.CR PO SCH (08:02)
[2018-11-08] MEDS: Doxycycline 100 MG in Sodium Chloride 0.9% 100 ML IV SCH (08:03)
[2018-11-08] MEDS: Nicotine 21 MG/24 Hr Patch TRDERM SCH (08:04)
[2018-11-08] MEDS: VELPATASVIR PO SCH (08:05)
[2018-11-08] MEDS: SOFOSBUVIR PO SCH (08:05)
[2018-11-08] MEDS: Budesonide 0.5 MG/2 ML Neb Susp INH SCH (08:48)
[2018-11-08] MEDS ORDERED: Insulin Glarg,Human.Rec.Analog 100 UNIT/ML ML SUBCUT SCH (09:00)
--- NOTE | 2018-11-08 09:11 | PCM.DCSUM1 ---
Discharge Summary - Hospital Course HPI Initial Comments: [id number] male was brought to the emergency room by EMS secondary to sudden shortness of breath this morning. At time of interview patient was on BiPAP so history was obtained by both brother and patient. They states that this winter when he woke up he had chills, worsening dyspnea, they increased his O2, gave him breathing treatments, but he remained short of breath. When EMS arrived he had peripheral mottling, O2 sats of 82% with his oxygen concentrator turned all the way up and also using the supplemental oxygen take with the mask. When patient arrived in the emergency room he was placed on BiPAP. Patient has a history of metastatic lung cancer. He was first diagnosed 1 year ago. He went through treatment of radiation and chemotherapy. Unfortunately, patient also more recently found to have a brain metastasis. Patient is on dexamethasone chronically. Patient is also on Keppra for seizure prophylaxis. Patient has a history of chronic atrial fibrillation and is on metoprolol and digoxin. He has hepatitis C and is currently being treated with Epclusa. He has chronic pain and back pain and is on cyclobenzaprine and oxycodone. His anxiety disorder and taking chronic lorazepam as well as sertraline. In the emergency room patient was placed on BiPAP. Initial ABG showed pH 7.50, PCO2 36.9, PO2 70.0, HCO3 28.2, O2 saturation 94.2% on 70% FiO2 with BiPAP 04/17. Repeat blood gas showed pH 7.48, PCO2 of 39.2, PO2 of 157, HCO3 of 28.6, oxygen saturation 97.8, on same settings. Patient had a significantly elevated d-dimer so a CTA of the chest was performed. Impression: 1 no findings of pulmonary embolism. 2. Parenchymal density within the periphery of the right upper and right lower lung as an interval change from previous checks x-ray of 10/14/2018. Findings could represent lymphangitic metastastic disease as well as pneumonia. White count 9370, 71.7% neutrophils with left shift and slight toxic granulation. Sodium 136 , potassium 4.6, BUN 25, currently 1.3, anion gap 16.6, and lactic acid of 3.6. Magnesium was 1.6. She wrecked protein 7.8 with a troponin of less than 0.017. Digoxin normal at 0.9. At this time patient was admitted to the ICU for further care. He was given Rocephin 2 g prior to transfer and had blood cultures done. ER doctor to talk to his oncologist who recommended hospitalization and felt in his current condition he could stay in [facility]. Brief History: For the first 16 hours patient had a significant improvement in his symptoms. He was weaned down to his baseline 4 L nasal cannula. Late yesterday afternoon on transferring patient became severely tachycardic with pulse up to 200 and Restoril rate worsened. Patient then had worsening respiratory status with requirement of BiPAP and sedation with Ativan. Patient has continued to require BiPAP through the night with general worsening of status. Of note, patient also has a wound on his scalp that has worsened and is now fluctuant and draining purulent matter. ABGs this morning: PH 7.42, PCO2 45.9, PO2 102, HCO3 29.0 Diagnosis: Stroke: No - Discharge Data Discharge Date: 11/08/18 Discharge Disposition: DC/Tfer to Acute Hospital 02 Condition: Good - Discharge Diagnosis/Problem(s) (1) Lung cancer metastatic to brain SNOMED Code(s): 94817618 ICD Code: C34.90 - MALIGNANT NEOPLASM OF UNSP PART OF UNSP BRONCHUS OR LUNG; C79.31 - SECONDARY MALIGNANT NEOPLASM OF BRAIN Status: Acute Current Visit: Yes (2) Atrial fibrillation with RVR SNOMED Code(s): 324069865443321 ICD Code: I48.91 - UNSPECIFIED ATRIAL FIBRILLATION Status: Acute Current Visit: Yes (3) Pneumonia SNOMED Code(s): 900615903 ICD Code: J18.9 - PNEUMONIA, UNSPECIFIED ORGANISM Status: Acute Current Visit: Yes Qualifiers: Pneumonia type: due to unspecified organism Laterality: left Lung location: lower lobe of lung Qualified Code(s): J18.1 - Lobar pneumonia, unspecified organism (4) Sepsis SNOMED Code(s): 17025469 ICD Code: A41.9 - SEPSIS, UNSPECIFIED ORGANISM Status: Acute Current Visit: Yes (5) Respiratory failure with hypoxia SNOMED Code(s): 44579310852010847 ICD Code: J96.91 - RESPIRATORY FAILURE, UNSPECIFIED WITH HYPOXIA Status: Acute Current Visit: Yes - Patient Summary/Data Consults: Consultations 11/07/18 07:44 PT Evaluation and Treatment [CONS] Routine 11/07/18 07:45 OT Evaluation and Treatment [CONS] Routine - Discharge Plan *PRESCRIPTION DRUG MONITORING PROGRAM REVIEWED*: Not Applicable *COPY OF PRESCRIPTION DRUG MONITORING REPORT IN PATIENT JAY: Not Applicable Home Medications: Home Meds Aspirin 81 mg PO DAILY 04/08/18 [History] Budesonide [Pulmicort] 1 puff IH BID 04/08/18 [History] Digoxin [Digox] 125 mcg PO SUTUTHSA 04/08/18 [History] Metoprolol Tartrate 50 mg PO BID 04/08/18 [History] Sertraline [Zoloft] 50 mg PO DAILY 04/08/18 [History] LORazepam 1 tab PO TID PRN 09/20/18 [History] Magnesium Oxide 1 tab PO DAILY 09/20/18 [History] Sofosbuvir/Velpatasvir [Epclusa 400 mg-100 mg Tablet] 1 tab PO DAILY 09/20/18 [ History] Pantoprazole Sodium [Protonix] 40 mg PO DAILY 10 Days #10 tablet. 09/22/18 [Rx ] Digoxin [Digox] 250 mcg PO MOWEFR 11/06/18 [History] dexAMETHasone [Dexamethasone] 2 mg PO BID 11/06/18 [History] traZODone HCl [Trazodone HCl] 100 mg PO BEDTIME 11/06/18 [History] Doxycycline [Vibramycin] 100 mg IV Q12HR vial 11/08/18 [Rx] Heparin Sodium 5,000 units SUBCUT Q8H vial 11/08/18 [Rx] Insulin Glarg,Human.Rec.Analog [Lantus] 0 unit SUBCUT DAILY ml 11/08/18 [Rx] Insulin Lispro [HumaLOG] 0 unit SUBCUT QIDACANDBED vial 11/08/18 [Rx] Ipratropium [Atrovent] 0.5 mg NEB Q6HRRT neb 11/08/18 [Rx] LORazepam [Ativan] 1 mg IVPUSH Q1H PRN vial 11/08/18 [Rx] Levalbuterol HCl [Xopenex] 1.25 mg NEB Q6HRRT neb 11/08/18 [Rx] Nicotine [Habitrol] 21 mg TRDERM DAILY patch 11/08/18 [Rx] Ondansetron [Zofran ODT] 4 mg PO Q4H PRN tab.dis 11/08/18 [Rx] Ondansetron [Zofran] 4 mg IV Q4H PRN vial 11/08/18 [Rx] Remove Patch 1 ea TRDERM DAILY each 11/08/18 [Rx] Sodium Chloride 0.9% [Saline Flush] 10 ml FLUSH ASDIRECTED PRN syringe [Rx] cefTRIAXone [Rocephin] 2 gm IV Q24H adv 11/08/18 [Rx] levETIRAcetam [Keppra] 500 mg PO 2100 tablet 11/08/18 [Rx] oxyCODONE 10 mg PO Q4H PRN tablet 11/08/18 [Rx] Oxygen Therapy Mode: BiPAP FiO2: 50 Patient Handouts: Acute Respiratory Failure, Adult, Community-Acquired Pneumonia, Adult Forms: ED Department Discharge Referrals: Denny Castillo MD [Primary Care Provider] - - Discharge Summary/Plan Comment DC Time >30 min.: Yes Discharge Summary/Plan Comment: Patient will be air transported to [facility]. I spoke with his brother who states that he would and his sisters would like a higher level of care to determine if his condition is terminal. Dr. Hopper from [facility] ICU is accepting physician. - General Info Date of Service: 11/08/18 Admission Dx/Problem (Free Text: Admission Diagnosis/Problem Admission Diagnosis/Problem Pneumonia - Review of Systems General: Reports: Other ( unable to obtain review of systems ) Pulmonary: Reports: Shortness of Breath - Patient Data Vitals - Most Recent: Last Vital Signs Temp 96.8 F 11/08/18 08:00 Pulse 66 11/08/18 08:00 Resp 30 H 11/08/18 08:00 BP 88/64 L 11/08/18 08:00 Pulse Ox 99 11/08/18 08:49 Weight - Most Recent: 240 lb 1.6 oz I&O - Last 24 hours: Intake & Output 11/07/18 11/08/18 11/08/18 22:59 06:59 14:59 Intake Total 1680 100 Output Total 1050 415 200 Balance 630 -315 -200 Lab Results - Last 24 hrs: Laboratory Results - last 24 hr 11/07/18 11/07/18 11/07/18 Range/Units 11:57 16:55 18:40 WBC (4.23-9.07) K/mm3 RBC (4.63-6.08) M/mm3 Hgb (13.7-17.5) gm/L Hct (40.1-51.0) % MCV (79.0-92.2) fl MCH (25.7-32.2) pg MCHC (32.2-35.5) g/dl RDW Std Deviation (35.1-43.9) fL Plt Count (163-337) K/mm3 MPV (9.4-12.3) fl Neut % (Auto) (34.0-67.9) % Lymph % (Auto) (21.8-53.1) % [place] % (Auto) (5.3-12.2) % Eos % (Auto) (0.8-7.0) Baso % (Auto) (0.1-1.2) % Neut # (Auto) (1.78-5.38) K/mm3 Lymph # (Auto) (1.32-3.57) K/mm3 [place] # (Auto) (0.30-0.82) K/mm3 Eos # (Auto) (0.04-0.54) K/mm3 Baso # (Auto) (0.01-0.08) K/mm3 Manual Slide Review Sodium (136-145) mEq/L Potassium (3.5-5.1) mEq/L Chloride (98-107) mEq/L Carbon Dioxide (21-32) mEq/L Anion Gap (5-15) BUN (7-18) mg/dL Creatinine (0.7-1.3) mg/dL Est Cr Clr Drug Dosing mL/min Estimated GFR (MDRD) (>60) mL/min BUN/Creatinine Ratio (14-18) Glucose (80-115) mg/dL POC Glucose 278 H 287 H (80-115) mg/dL Hemoglobin A1c (4.50-6.20) % Calcium (8.5-10.1) mg/dL Magnesium (1.8-2.4) mg/dl Total Bilirubin (0.2-1.0) mg/dL AST (15-37) U/L ALT (16-63) U/L Alkaline Phosphatase (46-116) U/L Troponin I < 0.017 (0.00-0.056) ng/mL Total Protein (6.4-8.2) g/dl Albumin (3.4-5.0) g/dl Globulin gm/dL Albumin/Globulin Ratio (1-2) Digoxin (0.9-2.0) ng/mL 11/07/18 11/07/18 11/08/18 Range/Units 20:40 21:49 04:44 WBC (4.23-9.07) K/mm3 RBC (4.63-6.08) M/mm3 Hgb (13.7-17.5) gm/L Hct (40.1-51.0) % MCV (79.0-92.2) fl MCH (25.7-32.2) pg MCHC (32.2-35.5) g/dl RDW Std Deviation (35.1-43.9) fL Plt Count (163-337) K/mm3 MPV (9.4-12.3) fl Neut % (Auto) (34.0-67.9) % Lymph % (Auto) (21.8-53.1) % [place] % (Auto) (5.3-12.2) % Eos % (Auto) (0.8-7.0) Baso % (Auto) (0.1-1.2) % Neut # (Auto) (1.78-5.38) K/mm3 Lymph # (Auto) (1.32-3.57) K/mm3 [place] # (Auto) (0.30-0.82) K/mm3 Eos # (Auto) (0.04-0.54) K/mm3 Baso # (Auto) (0.01-0.08) K/mm3 Manual Slide Review Sodium 137 (136-145) mEq/L Potassium 4.1 (3.5-5.1) mEq/L Chloride 102 (98-107) mEq/L Carbon Dioxide 30 (21-32) mEq/L Anion Gap 9.1 (5-15) BUN 13 (7-18) mg/dL Creatinine 0.7 (0.7-1.3) mg/dL Est Cr Clr Drug Dosing 112.98 mL/min Estimated GFR (MDRD) > 60 (>60) mL/min BUN/Creatinine Ratio 18.6 H (14-18) Glucose 212 H (80-115) mg/dL POC Glucose 309 H (80-115) mg/dL Hemoglobin A1c (4.50-6.20) % Calcium 8.7 (8.5-10.1) mg/dL Magnesium 1.6 L (1.8-2.4) mg/dl Total Bilirubin 0.3 (0.2-1.0) mg/dL AST 11 L (15-37) U/L ALT 25 (16-63) U/L Alkaline Phosphatase 76 (46-116) U/L Troponin I < 0.017 (0.00-0.056) ng/mL Total Protein 5.2 L (6.4-8.2) g/dl Albumin 1.6 L (3.4-5.0) g/dl Globulin 3.6 gm/dL Albumin/Globulin Ratio 0.4 L (1-2) Digoxin 0.9 (0.9-2.0) ng/mL 11/08/18 11/08/18 11/08/18 Range/Units 04:44 04:44 06:07 WBC 4.20 L (4.23-9.07) K/mm3 RBC 3.51 L (4.63-6.08) M/mm3 Hgb 9.5 L D (13.7-17.5) gm/L Hct 29.4 L (40.1-51.0) % MCV 83.8 (79.0-92.2) fl MCH 27.1 (25.7-32.2) pg MCHC 32.3 (32.2-35.5) g/dl RDW Std Deviation 49.7 H (35.1-43.9) fL Plt Count 121 L (163-337) K/mm3 MPV 9.2 L (9.4-12.3) fl Neut % (Auto) 78.7 H (34.0-67.9) % Lymph % (Auto) 10.2 L (21.8-53.1) % [place] % (Auto) 5.0 L (5.3-12.2) % Eos % (Auto) 0.2 L (0.8-7.0) Baso % (Auto) 0.2 (0.1-1.2) % Neut # (Auto) 3.30 (1.78-5.38) K/mm3 Lymph # (Auto) 0.43 L (1.32-3.57) K/mm3 [place] # (Auto) 0.21 L (0.30-0.82) K/mm3 Eos # (Auto) 0.01 L (0.04-0.54) K/mm3 Baso # (Auto) 0.01 (0.01-0.08) K/mm3 Manual Slide Review Abnormal smear Sodium (136-145) mEq/L Potassium (3.5-5.1) mEq/L Chloride (98-107) mEq/L Carbon Dioxide (21-32) mEq/L Anion Gap (5-15) BUN (7-18) mg/dL Creatinine (0.7-1.3) mg/dL Est Cr Clr Drug Dosing mL/min Estimated GFR (MDRD) (>60) mL/min BUN/Creatinine Ratio (14-18) Glucose (80-115) mg/dL POC Glucose 214 H (80-115) mg/dL Hemoglobin A1c 10.50 H (4.50-6.20) % Calcium (8.5-10.1) mg/dL Magnesium (1.8-2.4) mg/dl Total Bilirubin (0.2-1.0) mg/dL AST (15-37) U/L ALT (16-63) U/L Alkaline Phosphatase (46-116) U/L Troponin I (0.00-0.056) ng/mL Total Protein (6.4-8.2) g/dl Albumin (3.4-5.0) g/dl Globulin gm/dL Albumin/Globulin Ratio (1-2) Digoxin (0.9-2.0) ng/mL JAY Results - Last 24 hrs: Microbiology 11/06/18 20:00 Streptococcus pneumoniae Antigen (M - Final Urine 11/06/18 20:00 Legionella Urinary Antigen - Final Urine 11/06/18 21:00 Gram Stain - Final Sputum - Expectorated Sputum Culture - Preliminary 11/06/18 12:13 Aerobic Blood Culture - Preliminary Blood NO GROWTH AFTER 1 DAY Anaerobic Blood Culture - Preliminary NO GROWTH AFTER 1 DAY Med Orders - Current: Current Medications Aspirin (Halfprin) 81 mg PO DAILY [facility] Last Admin: 11/08/18 08:01 Dose: 81 mg Budesonide (Pulmicort) 0.5 mg INH BID [facility] Last Admin: 11/08/18 08:48 Dose: 0.5 mg Dexamethasone (Dexamethasone) 4 mg PO BID [facility] Last Admin: 11/08/18 08:01 Dose: 4 mg Digoxin (Lanoxin) 125 mcg PO SuTuThSa@1200 SANNA Digoxin (Lanoxin) 250 mcg PO MoWeFr@1200 [facility] Last Admin: 11/07/18 11:59 Dose: 250 mcg Heparin Sodium (Porcine) (Heparin Sodium) 5,000 units SUBCUT Q8H [facility] Last Admin: 11/08/18 01:13 Dose: 5,000 units Sodium Chloride (Normal Saline) 100 mls @ 60 mls/hr IV ASDIRECTED [facility] Last Admin: 11/06/18 12:42 Dose: 60 mls/hr Ceftriaxone Sodium 2 gm/ (Sodium Chloride) 100 mls @ 200 mls/hr IV Q24H [facility] Last Admin: 11/07/18 13:30 Dose: 200 mls/hr Doxycycline Hyclate 100 mg/ (Sodium Chloride) 100 mls @ 100 mls/hr IV Q12HR [facility] Last Admin: 11/08/18 08:03 Dose: 100 mls/hr Insulin Glargine (Lantus) 0 unit SUBCUT DAILY [facility] Last Admin: 11/08/18 08:02 Dose: 20 units Insulin Human Lispro (Humalog) 0 unit SUBCUT QIDACANDBED [facility]; Protocol Last Admin: 11/08/18 06:08 Dose: 4 units Ipratropium [place] (Atrovent) 0.5 mg NEB Q6HRRT [facility] Last Admin: 11/08/18 08:47 Dose: 0.5 mg Levalbuterol HCl (Xopenex) 1.25 mg NEB Q6HRRT [facility] Last Admin: 11/08/18 08:47 Dose: 1.25 mg Levetiracetam (Keppra) 500 mg PO 2100 [facility] Last Admin: 11/07/18 20:26 Dose: 500 mg Lorazepam (Ativan) 0.5 mg PO TID PRN PRN Reason: Anxiety Last Admin: 11/07/18 11:02 Dose: 0.5 mg Lorazepam (Ativan) 1 mg IVPUSH Q1H PRN PRN Reason: Anxiety Last Admin: 11/08/18 08:03 Dose: 1 mg Magnesium Oxide (Magnesium Oxide) 400 mg PO DAILY [facility] Last Admin: 11/08/18 08:01 Dose: 400 mg Metoprolol Tartrate (Lopressor) 50 mg PO BID [facility] Last Admin: 11/08/18 07:59 Dose: 50 mg Miscellaneous Information (Remove Patch) 1 ea TRDERM DAILY [facility] Last Admin: 11/08/18 08:04 Dose: 1 ea Nicotine (Habitrol) 21 mg TRDERM DAILY [facility] Last Admin: 11/08/18 08:04 Dose: 21 mg Ondansetron HCl (Zofran Odt) 4 mg PO Q4H PRN PRN Reason: nausea, able to take PO Ondansetron HCl (Zofran) 4 mg IV Q4H PRN PRN Reason: Nausea/Vomiting Oxycodone HCl (Oxycodone) 10 mg PO Q4H PRN PRN Reason: Pain Last Admin: 11/08/18 07:59 Dose: 10 mg Pantoprazole Sodium (Protonix) 40 mg PO DAILY [facility] Last Admin: 11/08/18 08:02 Dose: 40 mg Sofosbuvir/Velpatasvir [Epclusa ] 400mg-100mg Tablet Ptom 1 each PO DAILY [facility] Last Admin: 11/08/18 08:05 Dose: 1 each Sertraline HCl (Zoloft) 50 mg PO DAILY [facility] Last Admin: 11/08/18 08:01 Dose: 50 mg Sodium Chloride (Saline Flush) 10 ml FLUSH ASDIRECTED PRN PRN Reason: Keep Vein Open Trazodone HCl (Trazodone) 100 mg PO BEDTIME PRN PRN Reason: Insomnia Last Admin: 11/07/18 20:26 Dose: 100 mg Discontinued Medications Albuterol/Ipratropium (Duoneb 3.0-0.5 Mg/3 Ml) 3 ml NEB ONETIME ONE Stop: 11/06/18 12:00 Last Admin: 11/06/18 12:05 Dose: 3 ml Albuterol/Ipratropium (Duoneb 3.0-0.5 Mg/3 Ml) Confirm Administered Dose 3 ml .ROUTE .STK-MED ONE Stop: 11/06/18 12:00 Last Admin: 11/06/18 12:05 Dose: Not Given Albuterol/Ipratropium (Duoneb 3.0-0.5 Mg/3 Ml) 3 ml NEB QID SANNA Albuterol/Ipratropium (Duoneb 3.0-0.5 Mg/3 Ml) 3 ml NEB QIDRT [facility] Last Admin: 11/07/18 15:14 Dose: 3 ml Dexamethasone (Dexamethasone) 4 mg IVPUSH ONETIME ONE Stop: 11/06/18 12:16 Last Admin: 11/06/18 12:19 Dose: 4 mg Hydromorphone HCl (Dilaudid) 0.5 mg IVPUSH ONETIME ONE Stop: 11/06/18 15:35 Last Admin: 11/06/18 15:40 Dose: 0.5 mg Sodium Chloride (Normal Saline) 500 mls @ 999 mls/hr IV .BOLUS ONE Stop: 11/06/18 13:52 Last Admin: 11/06/18 13:29 Dose: 999 mls/hr Ceftriaxone Sodium 2 gm/ (Sodium Chloride) 100 mls @ 200 mls/hr IV NOW STA Stop: 11/06/18 14:48 Last Admin: 11/06/18 14:25 Dose: 200 mls/hr Sodium Chloride (Normal Saline) 1,000 mls @ 125 mls/hr IV ASDIRECTED [facility] Last Admin: 11/07/18 06:50 Dose: 125 mls/hr Magnesium Sulfate 2 gm/ Premix 50 mls @ 25 mls/hr IV ONETIME ONE Stop: 11/06/18 20:59 Last Admin: 11/06/18 19:20 Dose: 25 mls/hr Insulin Glargine (Lantus) 15 unit SUBCUT DAILY [facility] Last Admin: 11/07/18 08:23 Dose: 15 units Insulin Glargine (Lantus) 5 unit SUBCUT NOW STA Stop: 11/07/18 21:13 Last Admin: 11/07/18 21:30 Dose: 5 units Insulin Human Lispro (Humalog) 0 unit SUBCUT QIDACANDBED [facility]; Protocol Insulin Human Lispro (Humalog) 0 unit SUBCUT QIDACANDBED [facility]; Protocol Last Admin: 11/07/18 21:03 Dose: 4 unit Iopamidol (Isovue-370 (76%)) 100 ml IVPUSH ONETIME ONE Stop: 11/06/18 12:27 Last Admin: 11/06/18 12:41 Dose: 100 ml Levalbuterol HCl (Xopenex) 1.25 mg NEB Q4HRRT [facility] Last Admin: 11/07/18 17:12 Dose: 1.25 mg Levetiracetam (Keppra) 500 mg PO QPM [facility] Last Admin: 11/07/18 11:02 Dose: 500 mg Lorazepam (Ativan) Confirm Administered Dose 2 mg .ROUTE .STK-MED ONE Stop: 11/07/18 15:59 Last Admin: 11/07/18 16:37 Dose: Not Given Lorazepam (Ativan) 1 mg IVPUSH ONETIME ONE Stop: 11/07/18 16:06 Last Admin: 11/07/18 16:05 Dose: 1 mg Lorazepam (Ativan) Confirm Administered Dose 2 mg .ROUTE .STK-MED ONE Stop: 11/07/18 16:27 Last Admin: 11/07/18 16:37 Dose: Not Given Lorazepam (Ativan) 1 mg IVPUSH NOW STA Stop: 11/07/18 16:26 Last Admin: 11/07/18 16:25 Dose: 1 mg Sodium Chloride (Saline Flush) 10 ml FLUSH ONETIME ONE Stop: 11/06/18 12:27 Last Admin: 11/06/18 12:41 Dose: 10 ml - Exam Quality Assessment: Reports: Supplemental Oxygen General: Reports: Obtunded Neck: Reports: Supple Lungs: Reports: Decreased Breath Sounds, Wheezing. Denies: Normal Respiratory Effort (Increased risk for effort) Cardiovascular: Reports: Regular Rate, Regular Rhythm GI/Abdominal Exam: Normal Bowel Sounds, Soft, No Distention Extremities: Normal Inspection Skin: Reports: Warm, Dry, Intact
[2018-11-08 10:22] VITALS: BP 93/79
[2018-11-08] MEDS ORDERED: Digoxin 125 MCG Tab PO SCH (12:00)
== END 2018-11-08 10:05 | DRG 871 ==
LOC: JD.ED 11:45 → JD.ICU 15:51
PROVIDERS: ADMIT Family Medicine; ATTEND Family Medicine
PROC: 5A09457 Assistance with Respiratory Ventilation, 24-96 Consecutive Hours, Continuous Positive Airway Pressure (ICD-10-PCS; principal; 2018-11-06)
DX: A41.9 Sepsis, unspecified organism (principal); J18.1 Lobar pneumonia, unspecified organism; J96.91 Respiratory failure, unspecified with hypoxia; C34.90 Malignant neoplasm of unspecified part of unspecified bronchus or lung; C79.31 Secondary malignant neoplasm of brain; I48.2 Chronic atrial fibrillation; B19.20 Unspecified viral hepatitis C without hepatic coma; G89.29 Other chronic pain; M54.9 Dorsalgia, unspecified; F41.9 Anxiety disorder, unspecified; I25.10 Atherosclerotic heart disease of native coronary artery without angina pectoris; F17.210 Nicotine dependence, cigarettes, uncomplicated; I10 Essential (primary) hypertension; E78.00 Pure hypercholesterolemia, unspecified; J44.9 Chronic obstructive pulmonary disease, unspecified; E11.9 Type 2 diabetes mellitus without complications; Z95.5 Presence of coronary angioplasty implant and graft; Z90.49 Acquired absence of other specified parts of digestive tract; Z79.82 Long term (current) use of aspirin; Z92.3 Personal history of irradiation; Z92.21 Personal history of antineoplastic chemotherapy; Z79.4 Long term (current) use of insulin; Z79.899 Other long term (current) drug therapy
CPT/HCPCS: 36415; 36600; 51702; 71045; 71045-26; 71275; 71275-26; 72170; 72170-26; 80053; 80162; 82803; 82962; 83036; 83605; 83735; 84484; 85025; 85379; 86140; 87040; 87070; 87077; 87186; 87205; 87899; 93005; 93010; 93971-26-RT; 93971-RT; 94640; 94660; 94668; 96361; 96365; 96375; 97162-GP; 99284; 99285-25; A9270-GY; J0696; J1100; J1170; J1644; J1815-GY; J2060; J3475; J3490; J7030; J7040; J7612-GY; J7620-GY; J8540; Q9967